=== PATIENT | female | born 1940 | race Caucasian/White ===

== ENCOUNTER → 2020-08-19 13:22 | Outpatient (BNVA) | payer MEDICARE, SELFPAY | PROVIDERS: PCP Internal Medicine; Visit Provider Physician Assistant | DX: M17.0 Bilateral primary osteoarthritis of knee (principal); I10 Essential (primary) hypertension; E78.5 Hyperlipidemia, unspecified; Z88.5 Allergy status to narcotic agent | CPT/HCPCS: 20610; J7321 ==

== ENCOUNTER → 2020-08-27 10:55 | Outpatient (BNVA) | payer MEDICARE, SELFPAY | PROVIDERS: PCP Internal Medicine; Visit Provider Physician Assistant | DX: M17.0 Bilateral primary osteoarthritis of knee (principal) | CPT/HCPCS: 20610; J7321 ==

== ENCOUNTER → 2020-09-02 12:07 | Outpatient (BNVA) | payer MEDICARE, SELFPAY | PROVIDERS: PCP Internal Medicine; Visit Provider Physician Assistant | DX: M17.0 Bilateral primary osteoarthritis of knee (principal) | CPT/HCPCS: 20610; J7321 ==

== ENCOUNTER 2020-10-20 08:21 | Outpatient (REF) | payer MEDICARE, SELFPAY ==
--- NOTE | 2020-10-20 08:25 | MM_ITS ---
EXAMINATION: MM SCREENING DIGITAL BREAST TOMOSYNTHESIS, BILATERAL CLINICAL INFORMATION: Screening. Asymptomatic. The lifetime risk of breast cancer based on the Tyrer-Cuzick Model is 1%. COMPARISON: Mammography: 10/12/2019, 09/12/2018, 08/29/2017, 08/23/2017; ultrasound right breast 08/29/2017. TECHNIQUE: Digital breast tomosynthesis is performed in both the craniocaudal and mediolateral oblique views along with computer-aided detection (CAD). Synthesized 2D images are generated from the tomosynthesis. FINDINGS: The breasts are heterogeneously dense, which may obscure small masses (ACR BI-RADS breast composition Category c). There is fibronodular parenchymal pattern similar to prior studies. There is no developing density or architectural abnormality. Scattered punctate and vascular calcifications are again seen. There is a small circumscribed cyst again noted posterior outer right breast, decreased in size from 2017. MM/MM tomosynthesis screening BI IMPRESSION: No significant changes from prior exams. ASSESSMENT: BI-RADS 2: Benign RECOMMENDATION: Routine annual mammography screening. This patient's information was entered into a reminder system with a target due date for their next mammogram.
== END 2020-10-20 08:22 | disposition home or self-care (01) ==
LOC: HO.MAMMO 08:21
PROVIDERS: Visit Provider Internal Medicine
DX: Z12.31 Encounter for screening mammogram for malignant neoplasm of breast (principal)
CPT/HCPCS: 77063; 77067

== ENCOUNTER → 2021-08-12 14:28 | Outpatient (BNVA) | payer MEDICARE, SELFPAY | PROVIDERS: Visit Provider Physician Assistant | DX: M17.0 Bilateral primary osteoarthritis of knee (principal) | CPT/HCPCS: 20610; J7321 ==

== ENCOUNTER → 2021-08-19 13:04 | Outpatient (BNVA) | payer MEDICARE, SELFPAY | PROVIDERS: Visit Provider Physician Assistant | DX: M17.0 Bilateral primary osteoarthritis of knee (principal); I10 Essential (primary) hypertension; E78.5 Hyperlipidemia, unspecified; Z88.6 Allergy status to analgesic agent | CPT/HCPCS: 20610; J7321 ==

== ENCOUNTER → 2021-08-26 14:04 | Outpatient (BNVA) | payer MEDICARE, SELFPAY | PROVIDERS: Visit Provider Physician Assistant | DX: M17.0 Bilateral primary osteoarthritis of knee (principal) | CPT/HCPCS: 20610; J7321 ==

== ENCOUNTER 2021-10-21 15:29 | Outpatient (REF) | payer MEDICARE, SELFPAY ==
--- NOTE | ~2021-10-21 | MM_ITS ---
EXAMINATION: MM SCREENING DIGITAL BREAST TOMOSYNTHESIS, BILATERAL CLINICAL INFORMATION: Screening. Asymptomatic. The lifetime risk of breast cancer based on the Tyrer-Cuzick Model is 1%. COMPARISON: Mammography: 10/20/2020, 10/12/2019, 09/12/2018 TECHNIQUE: Digital breast tomosynthesis is performed in both the craniocaudal and mediolateral oblique views along with computer-aided detection (CAD). Synthesized 2D images are generated from the tomosynthesis. FINDINGS: The breasts are heterogeneously dense, which may obscure small masses (ACR BI-RADS breast composition Category c). There are no significant masses, abnormal calcifications, or other abnormalities. Scattered punctate and vascular calcifications are again present. No significant changes. MM/MM tomosynthesis screening BI IMPRESSION: No mammographic evidence of malignancy. ASSESSMENT: BI-RADS 2: Benign RECOMMENDATION: Routine annual mammography screening. This patient's information was entered into a reminder system with a target due date for their next mammogram.
== END 2021-10-21 15:30 | disposition home or self-care (01) ==
LOC: HO.MAMMO 15:29
PROVIDERS: Visit Provider Registered Nurse
DX: Z12.31 Encounter for screening mammogram for malignant neoplasm of breast (principal)
CPT/HCPCS: 77063; 77067

== ENCOUNTER 2021-12-21 08:01 | Outpatient (REF) | payer MEDICARE, SELFPAY ==
--- NOTE | ~2021-12-21 | MM_ITS ---
EXAMINATION: BONE DENSITOMETRY CLINICAL INDICATION: Postmenopausal. COMPARISON: None (current study represents initial baseline exam). TECHNIQUE: Using a [employer] DXA System (software version: 13.1) manufactured by [employer], dual-energy x-ray absorptiometry was performed of the lumbar spine and left hip. The images are of good technical quality. Summary results are attached. FINDINGS: AP SPINE L1-L4: BMD 1.129 g/cm2, Z-score 0.9, T-score -0.4, normal. LEFT FEMUR, NECK: BMD 0.702 g/cm2, Z-score -0.5, T-score -2.4, osteopenia. LEFT FEMUR, TOTAL: BMD 0.736 g/cm2, Z-score -0.4, T-score -2.2, osteopenia. IDENTIFIED RISK FACTORS: Menopause, height loss, hysterectomy. HISTORY OF FRACTURE: None listed. MEDICATIONS: Calcium, vitamin D. MM/XR DEXA axial skeleton IMPRESSION: 1. DIAGNOSIS: Osteopenia based on the lowest T-score value of -2.4 in the femoral neck applying World Health Organization criteria. 2. 10-YEAR FRACTURE RISK PREDICTION, FRAX: Major osteoporotic fracture (clinical spine, forearm, hip or shoulder) 17.5%. Hip fracture 6.0%. 3. Treatment Recommendations: NOF guidelines recommend consideration for treatment in postmenopausal women and men age 50 and older presenting with the following: -A hip or vertebral (clinical or morphometric) fracture. -T-score less than or equal to -2.5 at the femoral neck or spine after appropriate evaluation to exclude secondary causes. -Low bone mass at the hip or spine and a 10-year fracture probability by FRAX of greater than or equal to 3% for hip fracture or greater than or equal to 20% for major osteoporotic fracture based on the [place] adapted WHO algorithm. 4. Other Recommendations: All treatment decisions require clinical judgment and consideration of individual patient factors, including patient preferences, comorbidities, previous drug use, risk factors not captured in the FRAX model (e.g. frailty, falls, vitamin D deficiency, increased bone turnover, interval significant decline in bone density) and possible under or overestimation of fracture risk by FRAX. Additional medical evaluation for secondary cause of low bone mineral density may be appropriate. FUTURE SCAN RECOMMENDATION: People with diagnosed cases of osteoporosis or at high risk for fracture should have regular bone mineral density tests. For patients eligible for Medicare, routine testing is allowed once every 2 years. The testing frequency can be increased to one year for patients who have rapidly progressing disease, those who are receiving or discontinuing medical therapy to restore bone mass, or have additional risk factors.
== END 2021-12-21 08:02 | disposition home or self-care (01) ==
LOC: HO.MAMMO 08:01
PROVIDERS: PCP Registered Nurse; Visit Provider Registered Nurse
DX: Z13.820 Encounter for screening for osteoporosis (principal); M85.80 Other specified disorders of bone density and structure, unspecified site; Z78.0 Asymptomatic menopausal state; Z98.890 Other specified postprocedural states; Z79.899 Other long term (current) drug therapy
CPT/HCPCS: 77080

== ENCOUNTER 2022-10-26 15:20 | Outpatient (REF) | payer MEDICARE, SELFPAY ==
--- NOTE | ~2022-10-26 | MM_ITS ---
EXAMINATION: MM SCREENING DIGITAL BREAST TOMOSYNTHESIS, BILATERAL CLINICAL INFORMATION: Screening. Asymptomatic. The lifetime risk of breast cancer based on the Tyrer-Cuzick Model is 1%. COMPARISON: Mammography: 10/21/2021, 10/20/2020, 10/12/2019 TECHNIQUE: Digital breast tomosynthesis is performed in both the craniocaudal and mediolateral oblique views along with computer-aided detection (CAD). Synthesized 2D images are generated from the tomosynthesis. FINDINGS: The breasts are heterogeneously dense, which may obscure small masses (ACR BI-RADS breast composition Category c). There are no significant masses, abnormal calcifications, or other abnormalities. Parenchymal pattern is similar to prior studies. There is no developing density or architectural abnormality. The axilla and skin contours are unremarkable. No significant changes. MM/MM tomosynthesis screening BI IMPRESSION: No mammographic evidence of malignancy. ASSESSMENT: BI-RADS 2: Benign RECOMMENDATION: Routine annual mammography screening. This patient's information was entered into a reminder system with a target due date for their next mammogram.
== END 2022-10-26 15:21 | disposition home or self-care (01) ==
LOC: HO.MAMMO 15:20
PROVIDERS: PCP Registered Nurse; Visit Provider Registered Nurse
DX: Z12.31 Encounter for screening mammogram for malignant neoplasm of breast (principal)
CPT/HCPCS: 77063; 77067

== ENCOUNTER → 2023-01-11 12:13 | Outpatient (BNVA) | payer MEDICARE, SELFPAY | PROVIDERS: PCP Registered Nurse; Visit Provider Orthopaedic Surgery | DX: M67.432 Ganglion, left wrist (principal) | CPT/HCPCS: 20612; 99202 ==

== ENCOUNTER 2023-01-31 12:32 | Outpatient (REF) | payer MEDICARE, SELFPAY ==
--- NOTE | ~2023-01-31 | XR_ITS ---
EXAMINATION: XR WRIST, LEFT CLINICAL INFORMATION: Pain COMPARISON: Hand radiographs 07/31/2019 TECHNIQUE: PA, lateral, and oblique views of the left wrist. FINDINGS: Advanced degenerative changes of the hand and wrist regressed from prior with complete loss of radiocarpal and triscaphe joint space, and degenerative changes of the metacarpophalangeal and first interphalangeal joints. Soft tissues are unremarkable. No acute fracture or dislocation. XR/XR wrist LT min 3V IMPRESSION: Advanced degenerative changes of the hand and wrist.
== END 2023-01-31 12:33 | disposition home or self-care (01) ==
LOC: HO.HOSX 12:32
PROVIDERS: PCP Registered Nurse; Visit Provider Orthopaedic Surgery
DX: M67.432 Ganglion, left wrist (principal)
CPT/HCPCS: 73110; 99212

== ENCOUNTER 2023-02-23 06:22 | Outpatient (REF) | payer MEDICARE, SELFPAY ==
--- NOTE | ~2023-02-23 | XR_ITS ---
EXAMINATION: XR KNEE STANDING, BILATERAL XR KNEE, RIGHT XR KNEE, LEFT CLINICAL INDICATIONS: Pain. COMPARISON: Bilateral knee and AP knee standing 07/03/2020. TECHNIQUE: AP bilateral knee standing and 2 views each knee. AP Bilateral Knee: There is significant genu valgus deformity bilateral knees with severe loss of lateral compartment joint both knees. Right Knee: There is severe loss of patellofemoral compartment joint space with mild suprapatellar joint effusion and superior patellar spurring. No visible acute fracture, dislocation or lytic process seen. Left Knee: There is severe loss of patellofemoral compartment joint space with superior patellar spurring and mild joint effusion. There are no loose bodies. No bony erosive changes. XR/XR knee standing BI IMPRESSION: 1. Severe degenerative arthritic changes bilateral knee joints with genu valgus deformity. 2. There is no acute fracture, dislocation or lytic process seen in either knee. 3. There is progression of arthritic changes in both knees since the last exam 07/03/2020.
--- NOTE | ~2023-02-23 | XR_ITS ---
EXAMINATION: XR KNEE STANDING, BILATERAL XR KNEE, RIGHT XR KNEE, LEFT CLINICAL INDICATIONS: Pain. COMPARISON: Bilateral knee and AP knee standing 07/03/2020. TECHNIQUE: AP bilateral knee standing and 2 views each knee. AP Bilateral Knee: There is significant genu valgus deformity bilateral knees with severe loss of lateral compartment joint both knees. Right Knee: There is severe loss of patellofemoral compartment joint space with mild suprapatellar joint effusion and superior patellar spurring. No visible acute fracture, dislocation or lytic process seen. Left Knee: There is severe loss of patellofemoral compartment joint space with superior patellar spurring and mild joint effusion. There are no loose bodies. No bony erosive changes. XR/XR knee RT 2V IMPRESSION: 1. Severe degenerative arthritic changes bilateral knee joints with genu valgus deformity. 2. There is no acute fracture, dislocation or lytic process seen in either knee. 3. There is progression of arthritic changes in both knees since the last exam 07/03/2020.
--- NOTE | ~2023-02-23 | XR_ITS ---
EXAMINATION: XR KNEE STANDING, BILATERAL XR KNEE, RIGHT XR KNEE, LEFT CLINICAL INDICATIONS: Pain. COMPARISON: Bilateral knee and AP knee standing 07/03/2020. TECHNIQUE: AP bilateral knee standing and 2 views each knee. AP Bilateral Knee: There is significant genu valgus deformity bilateral knees with severe loss of lateral compartment joint both knees. Right Knee: There is severe loss of patellofemoral compartment joint space with mild suprapatellar joint effusion and superior patellar spurring. No visible acute fracture, dislocation or lytic process seen. Left Knee: There is severe loss of patellofemoral compartment joint space with superior patellar spurring and mild joint effusion. There are no loose bodies. No bony erosive changes. XR/XR knee LT 2V IMPRESSION: 1. Severe degenerative arthritic changes bilateral knee joints with genu valgus deformity. 2. There is no acute fracture, dislocation or lytic process seen in either knee. 3. There is progression of arthritic changes in both knees since the last exam 07/03/2020.
== END 2023-02-23 06:23 | disposition home or self-care (01) ==
LOC: HO.HOSX 06:22
PROVIDERS: Visit Provider Physician Assistant
DX: M17.0 Bilateral primary osteoarthritis of knee (principal)
CPT/HCPCS: 73560; 73565; 99212

== ENCOUNTER → 2023-03-06 11:06 | Outpatient (BNVA) | payer MEDICARE, SELFPAY | PROVIDERS: PCP Registered Nurse; Visit Provider Physician Assistant | DX: M17.0 Bilateral primary osteoarthritis of knee (principal) | CPT/HCPCS: 20610; J7321 ==

== ENCOUNTER → 2023-03-13 10:38 | Outpatient (BNVA) | payer MEDICARE, SELFPAY | PROVIDERS: PCP Registered Nurse; Visit Provider Physician Assistant | DX: M17.0 Bilateral primary osteoarthritis of knee (principal) | CPT/HCPCS: 20610 ==

== ENCOUNTER → 2023-03-23 10:04 | Outpatient (BNVA) | payer MEDICARE, SELFPAY | PROVIDERS: PCP Registered Nurse; Visit Provider Physician Assistant | DX: M17.0 Bilateral primary osteoarthritis of knee (principal) | CPT/HCPCS: 20610; J7321 ==

== ENCOUNTER 2023-07-24 09:10 | Outpatient (AMB) | payer MEDICARE, SELFPAY ==
--- NOTE | 2023-07-24 09:20 | A.OFFVIS_ITS ---
Intake Vital Signs 07/24/23 09:24 Height 5 ft 6 in Weight 165 lb BMI 26.6 Intake Visit Reasons: ov- bilateral knee cortisone injection Intake Note: Jennifer is an 83 year old female who presents today for a follow up of her bilateral knee OA. Last injections done were gel injections. She would like to have cortisone done today. She reports that on her way into the office she rolled her left foot laterally and is having a significant amount of pain along the 5th MT. Allergies codeine Allergy (Unknown, Verified 07/24/23 09:23) HIVES Codeine Phosphate Allergy (Unknown, Uncoded 07/24/23 09:23) hives HPI ov- bilateral knee cortisone injection HPI Details Jennifer is an 83 year old woman with bilateral knee OA. She was last seen and injected bilaterally with viscosupplementation on 03/23/23 by BEN Wallace. She complains of pain with daily activity and would like cortisone injections today. She says her last gel injections were not as helpful for her as her previous injections. She reports rolling her left foot when coming into the office today and complains of worsening pain in the lateral aspect of her foot. [facility] Medical History HTN (hypertension) Hyperlipidemia Social History Alcohol intake: never Patient Tobacco Use Status: Never used Tobacco Current occupational status: retired Current occupation: rt handed Review of Systems Const All systems reviewed & are unremarkable except as noted in HPI and below Physical Exam Vital Signs: BMI result Body Mass Index 26.6 Const General: no acute distress, alert and awake Orientation/consciousness: patient oriented x3 HEENT Head: Yes normocephalic and Yes atraumatic Eyes EOM: EOMs intact bilaterally Resp Effort & Inspection: normal respiratory effort and able to speak in complete sentences Cardio Jugular venous distension: no JVD Skin General skin exam: turgor normal Rashes: no rashes Neuro General: patient oriented x3 Extrem Other: Bilateral Knees: Skin C/D/I TTP medial compartment Psych Appearance: grossly normal Affect: normal affect Attitude: cooperative Office Procedures Joint Injection/Drain Joint Injection/Drain Details: Injected 1 mL of Decadron and 3 mL 1% lidocaine and 3 mL of 0.25% Marcaine. Site was prepped using aseptic technique. Patient tolerated the procedure well. Primary Site: right knee Secondary Site: left knee Approach Used: anterolateral Coding 54903 - Large joint 50347 - Glenohumeral/Tronchanteric Bursa/Intraarticular Procedure code (CPT) selection complete Results Reviewed Results Reviewed: 07/24/23 09:11 BUPivacaine MPF 0.25 % [Sensorcaine-MPF 0.25% 10 ML] 10 ml .ROUTE .STK-MED ONE Lidocaine HCl 1 % [Xylocaine 1 %] 2 ml .ROUTE .STK-MED ONE Lidocaine HCl 2 % MPF [Xylocaine 2 % MPF] 5 ml .ROUTE .STK-MED ONE dexAMETHasone sod phosphate [Decadron] 4 mg .ROUTE .STK-MED ONE I personally reviewed relevant radiographs. 1. Severe degenerative arthritic changes bilateral knee joints with genu valgus deformity. Assessment & Plan Assessment & Plan (1) Bilateral primary osteoarthritis of knee: Code(s): M17.0 - Bilateral primary osteoarthritis of knee Plan: This is an 83 year old woman with bilateral knee OA. She has pain with daily activity and a hx of relief from both steroid injections and viscosupplementation. I injected her bilateral knees today with steroid, which she tolerated well. She can follow up prn. (2) Left foot pain: Code(s): M79.672 - Pain in left foot Plan: Pain in left foot S/P twisting injury, DOI: 07/24/23. No intervention warranted, if her symptoms persist or worsen she can follow up and we may consider radiographs. Plan Scribed for Humberto Long MD by Florencio Ward, medical concierge, on 07/24/23 at 9:40 AM, EST. Coding Level of Care Code Est Pt Level 3 (44218) Diagnoses Bilateral primary osteoarthritis of knee M17.0 Left foot pain M79.672 CPT Codes Coding - Large joint: 75544 - Large joint ([id number]) Coding - Joint 7: 95440 - Glenohumeral/Tronchanteric Bursa/Intraarticular ([id number])
[2023-07-24 09:24] VITALS: BMI 26.6
== END 2023-07-24 09:54 | disposition home or self-care (01) ==
PROVIDERS: PCP Registered Nurse; Visit Provider Orthopaedic Surgery
DX: M17.0 Bilateral primary osteoarthritis of knee (principal); M79.672 Pain in left foot
CPT/HCPCS: 20610; 99213

== ENCOUNTER → 2023-07-24 09:10 | Outpatient (BNVA) | payer MEDICARE, SELFPAY | PROVIDERS: PCP Registered Nurse; Visit Provider Orthopaedic Surgery | DX: M17.0 Bilateral primary osteoarthritis of knee (principal); M79.672 Pain in left foot | CPT/HCPCS: 20610; 99212; J1100 ==

== ENCOUNTER → 2023-09-29 11:18 | Outpatient (BNVA) | payer MEDICARE, SELFPAY | PROVIDERS: PCP Registered Nurse; Visit Provider Physician Assistant | DX: M17.0 Bilateral primary osteoarthritis of knee (principal) | CPT/HCPCS: 20610; J7321 ==

== ENCOUNTER 2023-09-29 11:20 | Outpatient (AMB) | payer MEDICARE, SELFPAY ==
--- NOTE | 2023-09-29 11:30 | A.OFFVIS_ITS ---
Intake Vital Signs 09/29/23 11:31 Height 5 ft 6 in Weight 165 lb BMI 26.6 Intake Visit Reasons: ov- b/l knee Supartz injection #1 Intake Note: Jennifer 83 yr old female presents today for her bilateral supartz injection #1. Allergies codeine Allergy (Unknown, Verified 09/29/23 11:31) HIVES Codeine Phosphate Allergy (Unknown, Uncoded 09/29/23 11:31) hives HPI ov- b/l knee Supartz injection #1 HPI Details 83-year-old female who returns to the [facility] today for bilateral knee Supartz injection #1. PENDING SALE TO [facility] Medical History HTN (hypertension) Hyperlipidemia Social History Alcohol intake: never Patient Tobacco Use Status: Never used Tobacco Current occupational status: retired Current occupation: rt handed Review of Systems Const All systems reviewed & are unremarkable except as noted in HPI and below Physical Exam Vital Signs: BMI result Body Mass Index 26.6 Extrem Other: Bilateral knee skin intact, no erythema or joint effusion. Significant Valgus deformity , R>L. Tenderness along the medial or lateral or medial and lateral joint line. Full ROM with crepitus. Negative Naomi?s. No ligamentous laxity. NVI. Office Procedures Joint Injection/Drain Joint Injection/Drain Details: bilat knee euflexxa Primary Site: right knee Secondary Site: left knee Prep: site was prepped using aseptic technique, ethochloride spray was applied and injection warnings given Injected: in the joint Approach Used: anterolateral Procedure: The patient tolerated the procedure well Coding 39407 - Glenohumeral/Tronchanteric Bursa/Intraarticular Procedure code (CPT) selection complete Assessment & Plan Assessment & Plan (1) Bilateral primary osteoarthritis of knee: Code(s): M17.0 - Bilateral primary osteoarthritis of knee Plan We discussed options today which include Supartz injection. They did consent to move forward with the bilateral knee Supartz injection, which was tolerated well. I recommended rest, ice and elevation and OTC anti-inflammatories PRN for discomfort. If symptoms persist or worsens over the next 6-8 weeks, patient will contact the office, otherwise she will return in 1 week for bilateral knee Supartz injection #2. Patient Instructions: Scribed for Bailey Wallace PA-C, by Koby Truong medical administrative specialist, on 09/29/2023 at 11:30 PM EST. I, Bailey Wallace PA-C, have personally reviewed and agree with the information entered by the scribe. Coding Level of Care Code Procedure Only Diagnoses Bilateral primary osteoarthritis of knee M17.0 CPT Codes Coding - Joint 7: 37506 - Glenohumeral/Tronchanteric Bursa/Intraarticular ([id number])
[2023-09-29 11:31] VITALS: BMI 26.6
== END 2023-09-29 11:41 | disposition home or self-care (01) ==
PROVIDERS: PCP Registered Nurse; Visit Provider Physician Assistant
DX: M17.0 Bilateral primary osteoarthritis of knee (principal)
CPT/HCPCS: 20610

== ENCOUNTER 2023-10-06 11:10 | Outpatient (AMB) | payer MEDICARE, SELFPAY ==
[2023-10-06 11:15] VITALS: BMI 26.6
--- NOTE | 2023-10-06 11:15 | A.OFFVIS_ITS ---
Intake Vital Signs 10/06/23 11:15 Height 5 ft 6 in Weight 165 lb BMI 26.6 Intake Visit Reasons: ov- b/l knee supartz #2 Intake Note: Jennifer 83 yr old female presents today for her bilateral supartz injection #2. Allergies codeine Allergy (Unknown, Verified 10/06/23 11:15) HIVES Codeine Phosphate Allergy (Unknown, Uncoded 10/06/23 11:15) hives HPI ov- b/l knee supartz #2 HPI Details 83-year-old female who returns to the [facility] today for bilateral knee Supartz injection #2. [facility] Medical History HTN (hypertension) Hyperlipidemia Social History Alcohol intake: never Patient Tobacco Use Status: Never used Tobacco Current occupational status: retired Current occupation: rt handed Review of Systems Const All systems reviewed & are unremarkable except as noted in HPI and below Physical Exam Vital Signs: BMI result Body Mass Index 26.6 Extrem Other: Bilateral knee: Skin intact, no erythema or joint effusion. Tenderness along the medial and lateral joint line. Full ROM with crepitus. Negative Naomi?s. No ligamentous laxity. NVI. Office Procedures Joint Injection/Drain Joint Injection/Drain Details: supartz-bilateral Primary Site: right knee Secondary Site: left knee Prep: site was prepped using aseptic technique, ethochloride spray was applied and injection warnings given Injected: in the joint Approach Used: anterolateral Procedure: The patient tolerated the procedure well Coding 67118 - Glenohumeral/Tronchanteric Bursa/Intraarticular Procedure code (CPT) selection complete Assessment & Plan Assessment & Plan (1) Bilateral primary osteoarthritis of knee: Code(s): M17.0 - Bilateral primary osteoarthritis of knee Plan We discussed options today which include Supartz injection. They did consent to move forward with the bilateral knee Supartz injection, which was tolerated well. I recommended rest, ice and elevation and OTC anti-inflammatories PRN for discomfort. If symptoms persist or worsens over the next 6-8 weeks, patient will contact the office, otherwise she will return in 1 week for Supartz injection #3. Patient Instructions: Scribed for Bailey Wallace PA-C, by Koby Truong spanish medical interpreter, on 10/06/2023 at 11:15 AM SUNDEEP. Bailey Valdovinos PA-C, have personally reviewed and agree with the information entered by the scribe. Coding Level of Care Code Procedure Only Diagnoses Bilateral primary osteoarthritis of knee M17.0 CPT Codes Coding - Joint 7: 48502 - Glenohumeral/Tronchanteric Bursa/Intraarticular ([id number])
== END 2023-10-06 12:43 | disposition home or self-care (01) ==
PROVIDERS: PCP Registered Nurse; Visit Provider Physician Assistant
DX: M17.0 Bilateral primary osteoarthritis of knee (principal)
CPT/HCPCS: 20610

== ENCOUNTER → 2023-10-06 11:10 | Outpatient (BNVA) | payer MEDICARE, SELFPAY | PROVIDERS: PCP Registered Nurse; Visit Provider Physician Assistant | DX: M17.0 Bilateral primary osteoarthritis of knee (principal) | CPT/HCPCS: 20610; J7321 ==

== ENCOUNTER 2023-10-13 08:54 | Outpatient (AMB) | payer MEDICARE, SELFPAY ==
--- NOTE | 2023-10-13 08:59 | A.OFFVIS_ITS ---
Intake Intake Visit Reasons: ov- B/L knee supartz #3 Intake Note: Jennifer an 83 year old female presents today for bilateral knee Supartz #3. Allergies codeine Allergy (Unknown, Verified 10/06/23 11:15) HIVES Codeine Phosphate Allergy (Unknown, Uncoded 10/06/23 11:15) hives HPI ov- B/L knee supartz #3 HPI Details 83-year-old female who returns to the [facility] today for bilateral knee Supartz injection #3. [facility] Medical History HTN (hypertension) Hyperlipidemia Social History Alcohol intake: never Patient Tobacco Use Status: Never used Tobacco Current occupational status: retired Current occupation: rt handed Review of Systems Const All systems reviewed & are unremarkable except as noted in HPI and below Physical Exam Extrem Other: Bilateral knee: Skin intact, no erythema or joint effusion. Tenderness along the medial and lateral joint line. Full ROM with crepitus. Negative Naomi?s. No ligamentous laxity. NVI. Office Procedures Joint Injection/Drain Joint Injection/Drain Details: bilat knee supartz Primary Site: left knee Secondary Site: right knee Prep: site was prepped using aseptic technique, ethochloride spray was applied and injection warnings given Injected: 80 mg of, DepoMedrol, with 8 mL of, 1% plain lidocaine and in the joint Approach Used: anteromedial Procedure: The patient tolerated the procedure well and there was some relief with the local anesthesia Coding 86420 - Glenohumeral/Tronchanteric Bursa/Intraarticular Procedure code (CPT) selection complete Assessment & Plan Assessment & Plan (1) Bilateral primary osteoarthritis of knee: Code(s): M17.0 - Bilateral primary osteoarthritis of knee Plan We discussed options today which include Supartz & cortisone injection. They did consent to move forward with the bilateral knee Supartz injection along with cortisone injection, which was tolerated well. I recommended rest, ice and elevation and OTC anti-inflammatories PRN for discomfort. If symptoms persist or worsens over the next 6-8 weeks, patient will contact the office, otherwise follow-up as needed. Patient Instructions: Scribed for Bailey Wallace PA-C, by Koby Truong medical transcription supervisor, on 10/13/2023 at 9:00 AM Bailey CUMMINGS PA-C, have personally reviewed and agree with the information entered by the scribe. Coding Level of Care Code Procedure Only Diagnoses Bilateral primary osteoarthritis of knee M17.0 CPT Codes Coding - Joint 7: 45463 - Glenohumeral/Tronchanteric Bursa/Intraarticular ([id number])
== END 2023-10-13 10:53 | disposition home or self-care (01) ==
PROVIDERS: PCP Registered Nurse; Visit Provider Physician Assistant
DX: M17.0 Bilateral primary osteoarthritis of knee (principal)
CPT/HCPCS: 20610

== ENCOUNTER → 2023-10-13 08:54 | Outpatient (BNVA) | payer MEDICARE, SELFPAY | PROVIDERS: PCP Registered Nurse; Visit Provider Physician Assistant | DX: M17.0 Bilateral primary osteoarthritis of knee (principal) | CPT/HCPCS: 20610; J1040; J7321 ==

== ENCOUNTER 2023-11-01 08:56 | Outpatient (REF) | payer MEDICARE, SELFPAY ==
--- NOTE | ~2023-11-01 | MM_ITS ---
EXAMINATION: MM SCREENING DIGITAL BREAST TOMOSYNTHESIS, BILATERAL CLINICAL INFORMATION: Screening. Asymptomatic. COMPARISON: Mammography: This study is compared with prior exams dating back to 2018. TECHNIQUE: Digital breast tomosynthesis is performed in both the craniocaudal and mediolateral oblique views along with computer-aided detection (CAD). Synthesized 2D images are generated from the tomosynthesis. FINDINGS: The breasts are heterogeneously dense, which may obscure small masses (ACR BI-RADS breast composition Category c). There is an asymmetry in the upper-outer quadrant of the left breast. Additional mammographic and targeted sonographic evaluation of this region is advised. The remainder of the left breast is normal. In the right breast, there are no significant masses, abnormal calcifications, or other abnormalities. MM/MM tomosynthesis screening BI IMPRESSION: Asymmetry of the left breast warrants additional mammographic and targeted sonographic evaluation. No mammographic signs of malignancy right breast. ASSESSMENT: BI-RADS BI-RADS 0 - Incomplete: Needs additional Imaging. RECOMMENDATION: 1. Additional views of the left breast 2. Targeted ultrasound if warranted after review of the additional views. 3. Radiology department staff will contact the patient for additional imaging. Additional Imaging required This examination should not preclude the clinical evaluation of a suspicious palpable abnormality. This patient's information was entered into a reminder system with a target due date for their next mammogram.
== END 2023-11-01 08:57 | disposition home or self-care (01) ==
LOC: HO.MAMMO 08:56
PROVIDERS: PCP Internal Medicine; Visit Provider Internal Medicine
DX: Z12.31 Encounter for screening mammogram for malignant neoplasm of breast (principal)
CPT/HCPCS: 77063; 77067

== ENCOUNTER → 2023-11-01 09:00 | Outpatient (BNV) | payer MEDICARE, SELFPAY | PROVIDERS: Visit Provider Radiology Diagnostic Radiology | DX: Z12.31 Encounter for screening mammogram for malignant neoplasm of breast (principal) | CPT/HCPCS: 77063; 77067 ==

== ENCOUNTER → 2023-11-22 09:30 | Outpatient (BNV) | payer MEDICARE, SELFPAY | PROVIDERS: PCP Internal Medicine; Visit Provider Radiology Diagnostic Radiology | DX: R92.8 Other abnormal and inconclusive findings on diagnostic imaging of breast (principal) | CPT/HCPCS: 76642; 77065; G0279 ==

== ENCOUNTER 2023-11-22 09:40 | Outpatient (REF) | payer MEDICARE, SELFPAY ==
--- NOTE | ~2023-11-22 | US_ITS ---
EXAMINATION: MM DIAGNOSTIC DIGITAL BREAST TOMOSYNTHESIS, LEFT US BREAST LIMITED, LEFT MAMMOGRAPHY: CLINICAL INFORMATION: Follow-up one view asymmetry upper left breast seen on screening left MLO view with no definite CC correlate. COMPARISON: Mammography: Screening mammography 11/01/2023. Exams dating back to 2017. TECHNIQUE: Digital left breast tomosynthesis is performed utilizing the following views: Full-field 3-D left digital mediolateral view, 3-D spot compression left MLO view x2. FINDINGS: The breasts are heterogeneously dense, which may obscure small masses (ACR BI-RADS breast composition Category c). The 1 view asymmetry seen in the superior left breast on the left MLO projection does not definitively persist on spot compression views, however does appear to persist on the full-field left mediolateral view. Ultrasound will be performed for further assessment. No new or suspicious left breast findings. There are vascular calcifications. Parenchymal pattern resembles multiple old studies closely. ULTRASOUND: CLINICAL INFORMATION: As above. COMPARISON: None relevant. TECHNIQUE: Targeted sonographic evaluation left breast was performed using a high frequency linear transducer. Breast was evaluated from the 11:00 to the 3:00 axes. Selected archived documentation. FINDINGS: LEFT BREAST: There is heterogeneously dense tissue noted in the upper outer left breast. There is no mass, cystic abnormality, abnormal shadowing, parenchymal distortion, or edema tracking in the soft tissue planes. There is no correlate to the one view asymmetry seen as above. US/US breast LT limited mamm only IMPRESSION: There are no findings in the left breast suspicious for malignancy. 1 view asymmetry left upper MLO view does not persist on diagnostic spot compression views, and shows no correlate on targeted left breast ultrasound. This is simply dense breast tissue. Recommend the patient resume routine annual screening. OVERALL ASSESSMENT: Mammography: BI-RADS 2 - Benign Findings Ultrasound: BI-RADS 2 - Benign Findings RECOMMENDATION: 1 year F/U Results were provided to the patient at time of visit by the technologist. This patient's information was entered into a reminder system with a target due date for their next mammogram.
== END 2023-11-22 09:41 | disposition home or self-care (01) ==
LOC: HO.MAMMO 09:40
PROVIDERS: PCP Internal Medicine; Visit Provider Internal Medicine
DX: N64.89 Other specified disorders of breast (principal)
CPT/HCPCS: 76642; 77061; 77065

== ENCOUNTER 2024-03-20 11:06 | Outpatient (AMB) | payer MEDICARE, SELFPAY ==
--- NOTE | 2024-03-20 11:14 | A.OFFVIS_ITS ---
Vital Signs 03/20/24 12:00 Height 5 ft 6 in Weight 165 lb BMI 26.6 Intake Visit Reasons: OV - Bilateral Knee OA - Hx of Supartz Intake Note: Jennifer an 83 year old female presents today for a follow up of bilateral knee pain. Patient was last seen on 10/13/23 when supartz #3 was administered. Patient reports gel injection provided her with relief however her pain has ret urned and is requesting bilateral knee cortisone injections. Allergies codeine Allergy (Unknown, Verified 03/20/24 11:33) HIVES Codeine Phosphate Allergy (Unknown, Uncoded 03/20/24 11:33) hives HPI HPI OV - Bilateral Knee OA - Hx of Supartz: Details: 83-year-old female who returns to the office today for a follow-up of bilateral knee pain. She had her Supartz #3 injection on 10/13/23 which provided her relief however her pain returned recently. She would like to repeat the injection. [facility] Medical History HTN (hypertension) Hyperlipidemia Social History Alcohol intake: never Patient Tobacco Use Status: Never used Tobacco Current occupational status: retired Current occupation: rt handed Review of Systems Const All systems reviewed & are unremarkable except as noted in HPI and below Physical Exam Vital Signs: BMI result Body Mass Index 26.6 Extrem Other: Bilateral knee: Skin intact, no erythema or joint effusion. Tenderness along the medial and lateral joint line. Full ROM with crepitus. Negative Naomi?s. No ligamentous laxity. NVI. Office Procedures Joint Injection/Drain Joint Injection/Drain Primary Site: right knee Secondary Site: left knee Prep: site was prepped using aseptic technique, ethochloride spray was applied and injection warnings given Injected: 40 mg of, 80 mg of, DepoMedrol, with 8 mL of, 1% plain lidocaine and in the joint Approach Used: anterolateral Procedure: The patient tolerated the procedure well and there was some relief with the local anesthesia Coding 69311 - Glenohumeral/Tronchanteric Bursa/Intraarticular Procedure code (CPT) selection complete Assessment & Plan Assessment & Plan (1) Bilateral primary osteoarthritis of knee: Code(s): M17.0 - Bilateral primary osteoarthritis of knee Category: Medical Plan We discussed options today which include steroid injection. They did consent to move forward with the bilateral knee injection, which was tolerated well. I recommended rest, ice and elevation and OTC anti-inflammatories PRN for discomfort. If symptoms persist or worsens over the next 6-8 weeks, patient will contact the office, otherwise follow-up as needed. ? Patient Instructions: Scribed for Bailey Wallace PA-C, by Koby Truong medical service technician, on 03/20/2024 at 11:15 AM EST.? I, Bailey Wallace PA-C, have personally reviewed and agree with the information entered by the scribe. Coding Level of Care Code Est Pt Level 3 (55423) Diagnoses Bilateral primary osteoarthritis of knee M17.0 CPT Codes Coding - Joint 7: 76071 - Glenohumeral/Tronchanteric Bursa/Intraarticular ([id number])
[2024-03-20 12:00] VITALS: BMI 26.6
== END 2024-03-20 11:45 | disposition home or self-care (01) ==
PROVIDERS: PCP Internal Medicine; Visit Provider Physician Assistant
DX: M17.0 Bilateral primary osteoarthritis of knee (principal)
CPT/HCPCS: 20610; 99213

== ENCOUNTER → 2024-03-20 11:06 | Outpatient (BNVA) | payer MEDICARE, SELFPAY | PROVIDERS: PCP Internal Medicine; Visit Provider Physician Assistant | DX: M17.0 Bilateral primary osteoarthritis of knee (principal) | CPT/HCPCS: 20610; 99212; J1010 ==

== ENCOUNTER 2024-05-01 14:55 | Outpatient (AMB) | payer MEDICARE, SELFPAY ==
--- NOTE | 2024-05-01 15:04 | A.OFFVIS_ITS ---
Intake Visit Reasons: INJ-B/L knee Supartz #1 Intake Note: Jennifer an 84 year old female who presents today for a bilateral knee Supartz injection #1. Allergies codeine Allergy (Unknown, Verified 05/01/24 15:12) HIVES Codeine Phosphate Allergy (Unknown, Uncoded 05/01/24 15:12) hives HPI HPI INJ-B/L knee Supartz #1: Details: 84-year-old female who returns to the office today for bilateral knee Supartz injection #1. PFSH Medical History HTN (hypertension) Hyperlipidemia Social History Alcohol intake: never Patient Tobacco Use Status: Never used Tobacco Current occupational status: retired Current occupation: rt handed Review of Systems Const All systems reviewed & are unremarkable except as noted in HPI and below Physical Exam Extrem Other: Bilateral knee: Skin intact, no erythema or joint effusion. Tenderness along the medial and lateral joint line. Full ROM with crepitus. Negative Naomi?s. No ligamentous laxity. NVI. Office Procedures Joint Injection/Drain Joint Injection/Drain Details: Supartz injection #1. Primary Site: right knee Secondary Site: left knee Prep: site was prepped using aseptic technique, ethochloride spray was applied and injection warnings given Injected: in the joint Approach Used: anterolateral Procedure: The patient tolerated the procedure well Coding 91667 - Glenohumeral/Tronchanteric Bursa/Intraarticular Procedure code (CPT) selection complete Assessment & Plan Assessment & Plan (1) Bilateral primary osteoarthritis of knee: Code(s): M17.0 - Bilateral primary osteoarthritis of knee Category: Medical Plan We discussed options today, which include Supartz injection. The patient did consent to move forward with the bilateral knee Supartz injection #1, which was tolerated well. I recommended rest, ice, and elevation and OTC anti- inflammatories as needed for discomfort. If symptoms persist or worsen, patient will contact the office, otherwise she will see me back next week for Supartz injection #2. Patient Instructions: Scribed for Bailey Wallace PA-C, by Koby Truong medical technologist microbiology, on 05/01/2024 at 3:15 PM EST.? I, Bailey Wallace PA-C, have personally reviewed and agree with the information entered by the scribe. Coding Level of Care Code Procedure Only Diagnoses Bilateral primary osteoarthritis of knee M17.0 CPT Codes Coding - Joint 7: 60384 - Glenohumeral/Tronchanteric Bursa/Intraarticular ([id number])
== END 2024-05-01 16:34 | disposition home or self-care (01) ==
PROVIDERS: PCP Internal Medicine; Visit Provider Physician Assistant
DX: M17.0 Bilateral primary osteoarthritis of knee (principal)
CPT/HCPCS: 20610

== ENCOUNTER → 2024-05-01 14:55 | Outpatient (BNVA) | payer MEDICARE, SELFPAY | PROVIDERS: PCP Internal Medicine; Visit Provider Physician Assistant | DX: M17.0 Bilateral primary osteoarthritis of knee (principal) | CPT/HCPCS: 20610; J7321 ==

== ENCOUNTER 2024-05-08 14:31 | Outpatient (AMB) | payer MEDICARE, SELFPAY ==
--- NOTE | 2024-05-08 14:37 | A.OFFVIS_ITS ---
Vital Signs 05/08/24 14:38 Height 5 ft 6 in Weight 165 lb BMI 26.6 Intake Visit Reasons: inj-B/L knee Supartz #2 Intake Note: Jennifer an 84 year old female who presents today for bilateral knee injections Supartz #2. Allergies codeine Allergy (Unknown, Verified 05/08/24 14:40) HIVES Codeine Phosphate Allergy (Unknown, Uncoded 05/08/24 14:40) hives Medication List - Last Reconciled 05/08/24 by Bailye Wallace PA-C celecoxib 200 mg PO BID lisinopril 5 mg PO DAILY lisinopril 10 mg PO DAILY pravastatin 10 mg PO BEDTIME HPI HPI inj-B/L knee Supartz #2: Details: 84-year-old female who returns to the office today for bilateral knee Supartz injection #2. PFSH Medical History HTN (hypertension) Hyperlipidemia Social History Alcohol intake: never Patient Tobacco Use Status: Never used Tobacco Current occupational status: retired Current occupation: rt handed Review of Systems Const All systems reviewed & are unremarkable except as noted in HPI and below Physical Exam Vital Signs: BMI result Body Mass Index 26.6 Extrem Other: Bilateral knee: Skin intact, no erythema or joint effusion. Tenderness along the medial and lateral joint line. Full ROM with crepitus. Negative Naomi?s. No ligamentous laxity. NVI. Office Procedures Joint Injection/Drain Joint Injection/Drain Details: #2 supartz Primary Site: right knee Secondary Site: left knee Prep: site was prepped using aseptic technique, ethochloride spray was applied and injection warnings given Injected: in the joint Approach Used: anterolateral Procedure: The patient tolerated the procedure well and there was some relief with the local anesthesia Coding 78753 - Glenohumeral/Tronchanteric Bursa/Intraarticular Procedure code (CPT) selection complete Assessment & Plan Assessment & Plan (1) Bilateral primary osteoarthritis of knee: Code(s): M17.0 - Bilateral primary osteoarthritis of knee Category: Medical Plan We discussed options today, which include Supartz injection. The patient did consent to move forward with the bilateral knee Supartz injection, which was tolerated well. I recommended rest, ice, and elevation and OTC anti-inflammatori es as needed for discomfort. If symptoms persist or worsen over the next 6-8 weeks, patient will contact the office, otherwise she will return in 1 week for Supartz injection #3. Patient Instructions: Scribed for Bailey Wallace PA-C, by Koby Truong medical record librarian, on 05/08/2024 at 2:30 PM EST.? I, Bailey Wallace PA-C, have personally reviewed and agree with the information entered by the scribe. Coding Level of Care Code Procedure Only Diagnoses Bilateral primary osteoarthritis of knee M17.0 CPT Codes Coding - Joint 7: 35494 - Glenohumeral/Tronchanteric Bursa/Intraarticular ([id number])
[2024-05-08 14:38] VITALS: BMI 26.6
== END 2024-05-08 14:50 | disposition home or self-care (01) ==
PROVIDERS: PCP Internal Medicine; Visit Provider Physician Assistant
DX: M17.0 Bilateral primary osteoarthritis of knee (principal)
CPT/HCPCS: 20610

== ENCOUNTER → 2024-05-08 14:31 | Outpatient (BNVA) | payer MEDICARE, SELFPAY | PROVIDERS: PCP Internal Medicine; Visit Provider Physician Assistant | DX: M17.0 Bilateral primary osteoarthritis of knee (principal) | CPT/HCPCS: 20610; J7321 ==

== ENCOUNTER 2024-05-15 10:18 | Outpatient (AMB) | payer MEDICARE, SELFPAY ==
[2024-05-15 10:25] VITALS: BMI 26.6
--- NOTE | 2024-05-15 10:25 | A.OFFVIS_ITS ---
Vital Signs 05/15/24 10:25 Height 5 ft 6 in Weight 165 lb BMI 26.6 Intake Visit Reasons: Inj-B/L knee Supartz #3 Intake Note: Jennifer an 84 year old female who presents today for bilateral knee Supartz injection #3. Allergies codeine Allergy (Unknown, Verified 05/15/24 10:27) HIVES Codeine Phosphate Allergy (Unknown, Uncoded 05/15/24 10:27) hives HPI HPI Inj-B/L knee Supartz #3: Details: Jennifer an 84 year old female who presents today for bilateral knee Supartz injection #3. PFSH Medical History HTN (hypertension) Hyperlipidemia Social History Alcohol intake: never Patient Tobacco Use Status: Never used Tobacco Current occupational status: retired Current occupation: rt handed Review of Systems Const All systems reviewed & are unremarkable except as noted in HPI and below Physical Exam Vital Signs: BMI result Body Mass Index 26.6 Const General: cooperative, healthy appearing, comfortable and no acute distress Orientation/consciousness: patient oriented x3 Neck Neck: Yes normal visual inspection and Yes no JVD Chest Chest palpation & inspection: normal inspection of the chest Resp Effort & Inspection: normal respiratory effort Auscultation: clear to auscultation bilaterally, crackles (no), rales (no), rhonchi (no) and wheezes (no) Cardio Jugular venous distension: no JVD Rate: regular rate Rhythm: regular rhythm Heart sounds: S1 normal heart sound present, S2 normal heart sound present, Murmur heart sound present (no) and Rub heart sound present (no) Neuro General: patient oriented x3 Extrem Other: Bilateral knee: Skin intact, no erythema or joint effusion. Tenderness along the medial and lateral joint line. Full ROM with crepitus. Negative Naomi?s. No ligamentous laxity. NVI. General: Yes normal to inspection, Yes no pedal edema and Yes no calf tenderness Office Procedures Joint Injection/Aspiration Joint Injection/Aspiration Details: #3 supartz Primary Site: right knee Secondary Site: left knee Prep: site was prepped using aseptic technique, ethochloride spray was applied and injection warnings given Injected: in the joint Approach Used: anterolateral Procedure: The patient tolerated the procedure well Coding 35519 - Glenohumeral/Tronchanteric Bursa/Intraarticular Procedure code (CPT) selection complete Assessment & Plan Assessment & Plan (1) Bilateral primary osteoarthritis of knee: Code(s): M17.0 - Bilateral primary osteoarthritis of knee Category: Medical Plan We discussed options today, which include Supartz injection. The patient did consent to move forward with the bilateral knee #3 Supartz injection, which was tolerated well. I recommended rest, ice, and elevation and OTC anti- inflammatories as needed for discomfort. If symptoms persist or worsen over the next 6-8 weeks, patient will contact the office, otherwise as needed. Patient Instructions: Scribed for Bailey Wallace PA-C, by Leny Herrera district medical examiner, on 05/15/2024 at 10:30 AM EST. I, Bailey Wallace PA-C, have personally reviewed and agree with the information entered by the scribe. Coding Level of Care Code Procedure Only Diagnoses Bilateral primary osteoarthritis of knee M17.0 CPT Codes Coding - Joint 7: 79174 - Glenohumeral/Tronchanteric Bursa/Intraarticular ([id number])
== END 2024-05-15 13:14 | disposition home or self-care (01) ==
PROVIDERS: PCP Internal Medicine; Visit Provider Physician Assistant
DX: M17.0 Bilateral primary osteoarthritis of knee (principal)
CPT/HCPCS: 20610

== ENCOUNTER → 2024-05-15 10:18 | Outpatient (BNVA) | payer MEDICARE, SELFPAY | PROVIDERS: PCP Internal Medicine; Visit Provider Physician Assistant | DX: M17.0 Bilateral primary osteoarthritis of knee (principal) | CPT/HCPCS: 20610; J7321 ==

== ENCOUNTER 2024-11-06 09:55 | Outpatient (REF) | payer MEDICARE, SELFPAY | END 2024-11-06 09:56 | disposition home or self-care (01) | LOC: HO.MAMMO 09:55 | PROVIDERS: PCP Internal Medicine; Visit Provider Internal Medicine | DX: Z12.31 Encounter for screening mammogram for malignant neoplasm of breast (principal) | CPT/HCPCS: 77063; 77067 ==

== ENCOUNTER 2025-05-15 14:47 | Outpatient (AMB) | payer MEDICARE, SELFPAY ==
--- NOTE | 2025-05-15 14:52 | MHC.OFFVIS ---
Intake Visit Reasons: OV- Inj-B/L knee Supartz #1 Intake Note: Jennifer is an 85 year old female who presents today for bilateral knee Supartz #1 injection. Patient reports injection provided some relief, requesting to repeat gel injections. Allergies codeine Allergy (Unknown, Verified 05/15/24 10:27) HIVES Codeine Phosphate Allergy (Unknown, Uncoded 05/15/24 10:27) hives Medication List - Last Reconciled 05/15/25 by Bailey Wallace PA-C celecoxib 200 mg PO BID lisinopril 5 mg PO DAILY lisinopril 10 mg PO DAILY pravastatin 10 mg PO BEDTIME silver sulfadiazine 1% (Silvadene) 1 appl topical BID PRN HPI HPI OV- Inj-B/L knee Supartz #1: Details: 85-year-old female presents to the office today for #1. Bilateral knee Supartz injections. She has been doing well over the last several months but over the last couple of weeks her pain has progressively gotten worse and is limiting her activities. [facility] Medical History HTN (hypertension) Hyperlipidemia Social History Alcohol intake: never Patient Tobacco Use Status: Never used Tobacco Current occupational status: retired Current occupation: rt handed Review of Systems Const All systems reviewed & are unremarkable except as noted in HPI and below Physical Exam Const General: cooperative, healthy appearing, comfortable and no acute distress Orientation/consciousness: patient oriented x3 Neck Neck: Yes normal visual inspection and Yes no JVD Chest Chest palpation & inspection: normal inspection of the chest Resp Effort & Inspection: normal respiratory effort Auscultation: clear to auscultation bilaterally, crackles (no), rales (no), rhonchi (no) and wheezes (no) Cardio Jugular venous distension: no JVD Rate: regular rate Rhythm: regular rhythm Heart sounds: S1 normal heart sound present, S2 normal heart sound present, Murmur heart sound present (no) and Rub heart sound present (no) Neuro General: patient oriented x3 Extrem Other: Bilateral knee: Skin intact, no erythema or joint effusion. Tenderness along the medial and lateral joint line. Full ROM with crepitus. Negative Naomi?s. No ligamentous laxity. NVI. General: Yes normal to inspection, Yes no pedal edema and Yes no calf tenderness Office Procedures AMB Joint Injection/Aspiration Joint Injection/Aspiration Details: supartz Primary Site: right knee Secondary Site: left knee Prep: site was prepped using aseptic technique, ethochloride spray was applied and injection warnings given Injected: in the joint Approach Used: anterolateral Procedure: The patient tolerated the procedure well and there was some relief with the local anesthesia Coding 44546 - Glenohumeral/Tronchanteric Bursa/Intraarticular Procedure code (CPT) selection complete Assessment & Plan Assessment & Plan (1) Bilateral primary osteoarthritis of knee: Code(s): M17.0 - Bilateral primary osteoarthritis of knee Category: Medical Plan: Plan was to proceed with gel injection today. #1 supartz Injection performed today , bilateral knees, which the patient tolerated well. She will rest ice and use anti-inflammatories as needed for the next several days. I will see her back in 1 week for injection number 2 Medications: New silver sulfadiazine 1% (Silvadene) apply a 1.5 mm thickness 1 appl topical BID PRN 20 grams 1RF wound healing Coding Level of Care Code Procedure Only Diagnoses Bilateral primary osteoarthritis of knee M17.0 CPT Codes Coding - Joint 7: 35294 - Glenohumeral/Tronchanteric Bursa/Intraarticular ([id number])
--- OUTSIDE RECORDS SUMMARY | 2025-05-15 14:53 | XMS_ITS ---
Author Name [facility] Organization Unknown Care Team Organization Name Specialty Phone Email Start Date End Da te [facility] NULL Primary Care 10/31/2022 06/10/2024 [facility] Termed, PROVIDER Primary Care 08/30/202205/23
--- OUTSIDE RECORDS SUMMARY | 2025-05-15 14:53 | XMS_ITS | Clinical Summary ---
Author Organization [facility] Address [address] [place] [address] Phone Care Team Providers Care Dirt Shoveler Name Role Phone Renard Haynes MD Primary Care Provider [phone] Allergies Active Allergy Reactions Criticality Noted Date Comments Codeine-Guaifenesin Hives 10/09/2019 Medications MULTIVITAMIN ORAL Take 1 capsule by mouth daily. Active Medication-Free Text Take 1 capsule by mouth daily. Arthrozene for arthritis Active Medication-Free Text Take 1 Scoop by mouth daily. Collagen Nature Path Active Medication-Free Text Take 1 capsule by mouth daily. Brar Guard Active Medication-Free Text Take 1 capsule by mouth daily. lipidene Active celecoxib (CELEBREX) 200 MG capsule Take 1 capsule by mouth 2 (two) times a day. 4 Active atorvastatin (LIPITOR) 10 MG tabletIndications: Other hyperlipidemia take 1 tablet by mouth every day 90 tablet 3 4 Active lisinopril (PRINIVIL,ZESTRIL) 10 MG tabletIndications: Benign essential hypertension TAKE 1 TABLET BY MOUTH EVERY DAY 90 tablet 1 5 Active Active Problems Problem Noted Date Diagnosed Date Synovial cyst of left wrist 12/12/2022 Assessment & Plan (12/12/2022 11:15 AM EST): Will monitor to see if any worsening symptoms, signs of infection. As this is not painful or tender or limiting function at this time she is going to defer orthopedic follow-up. Osteopenia of multiple sites 12/01/2022 PVD (peripheral vascular disease) 02/02/2021 Urinary frequency 11/30/2020 Assessment & Plan (11/30/2020 11:00 AM EST): Check UA today. Jennifer reports she overall gets enough sleep and does not feel tired during the daytime despite waking to urinate. She will follow-up if this becomes more bothersome. Other insomnia 05/27/2020 Assessment & Plan (11/30/2020 11:00 AM EST): Declines treatment. Seems to be more of a urinary issue rather than a sleeping issue. Chronic pain of both knees 10/09/2019 Benign essential hypertension 10/09/2019 Assessment & Plan (12/12/2022 11:13 AM EST): poorly controlled, I would like to get another BP reading in a couple of weeks to confirm if this is her baseline. If so, will recommend medication adjustment. Assessment & Plan (11/30/2020 10:59 AM EST): Well-managed Other hyperlipidemia 10/09/2019 Assessment & Plan (12/12/2022 11:14 AM EST): Long discussion regarding statin therapy, indications, goals of treatment. We discussed that she is doing relatively well for being 82, is independent, does not have any major health issues or difficulties at this time. We discussed the pros and cons of continuing statin therapy. I do not see any drawback to this, and she has high LDL. We discussed the preventative nature of treatment and will monitor for any side effects that she resumes medication therapy. She will check a lipid panel, LFTs over the summer. She would like to go back on the lowest dose of atorvastatin possible, will prescribe atorvastatin 10 mg to be taken nightly. Assessment & Plan (11/30/2020 10:59 AM EST): Await fasting labs Depression 10/09/2019 Immunizations Immunization Administration Dates Next Due Tdap 09/01/2021 Zoster live 04/28/2012 Family History Medical History Relation Comments Heart attack Father Cancer Mother Relation Status Comments Brother Alive TONSIL CANCER Daughter 1 Alive Daughter 2 Alive Father (Age 45) at age 45 d/t heart attack Mother (Age 39) colon cANCER Son Alive Social History Tobacco Use Types Packs/Day Years Used Date Smoking Tobacco: Never Smokeless Tobacco: Never Comments:only 20 times in [place] bugs away Alcohol Use Standard Drinks/Week Comments Yes 3 (1 standard drink = 0.6 oz pure alcohol) 3-4 drinks, rum and coke weekly, if that Education Answer Date Recorded Are you interested in more education? Not on angelica e 02/17/2023 Are you concerned about learning? Not on file 02/17/2023 No 02/17/2023 No 02/17/2023 Digital Access Answer Date Recorded No 03/14/2023 No 03/14/2023 Reliable internet access at home? Not on file 03/14/2023 Device with a working camera? Not on file Intimate Partner Violence Answer Date R ecorded Denied Basic Needs Not on file 12/26/2023 In the past 12 months have y ou been in a relationship with a person who hurts, threatens, or tries to control you? No 12/26/2023 Worried food would run out Not on file 12/25 In the past 12 months have y ou been in a relationship with a person who hurts, threatens, or tries to control you? No 12/26/2023 Comments Unknown Sex and Gender Information Value Date Recorded Sex Assigned at Not on file Legal Sex Female 3:28 PM EDT Gender Identity Not on file Sexual Orientation Not on file Last Filed Vital Signs Vital Sign Reading Time Taken Comments Blood Pressure 136/80 12/26/2023 9:24 AM EST Pulse 72 12/26/2023 9:24 AM EST Temperature 35.9 C (96.7 F) 12/26/2023 9:24 AM EST Respiratory Rate 16 12/26/2023 9:24 AM EST Oxygen Saturation 97% 12/26/2023 9:24 AM EST Inhaled Oxygen Concentration - - Weight 78.9 kg (174 lb) 12/26/2023 9:24 AM EST Height 156.4 cm (5' 1.58 ) 12/26/2023 9:24 AM ES T Body Mass Index 32.27 12/26/2023 9:24 AM EST Plan of Treatment Health Maintenance Due Date Last Done Comments PNEUMOCOCCAL VACCINES (50+ years) (1 of 1 - PCV) 1988 ZOSTER VACCINES (2 of 3) 06/23/2012 04/28/2012 RSV VACCINE (1 - 1-dose 75+ series) 2013 FOLLOW UP BONE DENSITY TESTING 12/22/2023 12/21/2021 COVID-19 VACCINE (1 - season) 2024 CREATININE LEVEL 12/20/2024 12/21/2023, 04/2023, 12/07/2021, Additional history exists POTASSIUM LEVEL 12/20/2024 12/21/2023, 04/2023, 12/07/2021, Additional history exists DEPRESSION SCREENING 12/25/2024 12/26/2023 Adult Td,Tdap Booster 09/01/2031 09/01/2021 OSTEOPOROSIS SCREENING INITIAL (ONE-TIME) Completed 12/21/2021 HEPATITIS A VACCINES Aged Out No long er eligible based on patient's age to complete this topic HIB VACCINES Aged Out No longer eligi ble based on patient's age to complete this topic MENINGOCOCCAL VACCINES (ACWY) Aged Out No longer eligible based on patient's age to complete this topic MENINGOCOCCAL VACCINES (B) Aged Out N o longer eligible based on patient's age to complete this topic Medical Devices Not on file Procedures Procedure Name Priority Date/Time Associated Diagnosis Comments COMPREHENSIVE METABOLIC PANEL Routine 12/21/2023 8:28 AM EST Pure hypercholesterolemia Essential hypertension OUTSIDE BONE DENSITY SCREENING Routine 12/21/2021 from Last 3 Months or Most Recently Relevant to Health Maintenance Results * (ABNORMAL) Comprehensive metabolic panel (12/21/2023 8:28 AM EST) SODIUM 142 133 - 146 mmol/L POTASSIUM 4.4 3.3 - 5.1 mmol/L CHLORIDE 105 96 - 108 mmol/L CO2 28 21 - 35 mmol/L BUN 22(H) 6 - 19 mg/dL CREATININE 0.90 0.5 - 1.5 mg/dL GLUCOSE 91 70 - 99 mg/dL ALBUMIN 3.9 3.9 - 4.8 g/dL TOTAL PROTEIN 6.2(L) 6.5 - 8.0 g/dL CALCIUM 9.1 8.4 - 10.3 mg/dL ALKALINE PHOSPHATASE 94 39 - 117 U/L TOTAL BILIRUBIN 0.7 0.0 - 1.2 mg/dL AST 24 0 - 37 U/L ALT 11 0 - 40 U/L GLOBULIN 2.3 1 - 4.8 g/dL EGFR 63 >59 mL/min/1.7 3m2 Comment:Estimated glomerular filtration rate calculated using the CKD-EPI refit equation. ANION GAP 13 10 - 20 mmol/L Blood 12/21/2023 8:28 AM EST 12/21/2023 8:30 AM EST Renard Haynes MD LAB BLOOD ORDERABLES Final Re sult [address] [place] [address] * OUTSIDE BONE DENSITY SCREENING (12/21/2021) BONE DENSITY SCREENING - EXTERNAL osteopenia Historical Provider HEALTH MAINTENANCE Final Result from Last 3 Months or Most Recently Relevant to Health Maintenance Insurance [employer] Care Teams Dirt Shoveler Relationship Specialty Start Date End Date Renard Haynes MD [address] [place] [phone] [email or web address] PCP - General Internal Medicine 03/25/23 Additional Source Comments The information contained in this document represents components of the legal health record. It is not the complete legal health record.[facility]
--- OUTSIDE RECORDS SUMMARY | 2025-05-15 14:54 | XMS_ITS | Patient Health Record ---
Author Organization [facility] [place] Address [address] [place] [address] Care Team Providers Care Floral Assistant Name Role Phone Lenin Zuñiga MD Primary Care Provider Ariella Matute Unavailable [phone] Georges Page Unavailable [phone] Allergies Allergen (clinical drug ingredient) Drug/Non Drug Allergy documented on EMR Reaction Allergy Type Onset Date Status codeine Codeine hives Drug Allergy Active Reason For Referral Diagnosis 1 Atherosclerosis of n ative artery of both lower extremities, with unspecified presence of clinical manifestation (I70.203) Diagnosis 2 Essential hypertensi on (I10) Diagnosis 3 Pain in right toe(s) (M79.674) Diagnosis 4 Pain in left toe(s) (M79.675) Diagnosis 5 Tinea unguium (B35.1 ) Diagnosis 6 Skin disease (L98.9) Referring Provider First Name Renard Referring Provider Last Name [place] Referred Organization [facility] Referred Provider Ariella Marques Referred Address [address] [facility],[place], [place],[address], Referred Provider Specialty Podiatry Referral Priority Routine Medications Medication SIG (Take, Route, Frequency, Duration) Notes Start Date End Date Status Atorvastatin Calcium 40 MG 1 tablet Oral ly Once a day; Duration: 30 day(s) Active ABC Plus Senior - as directed Orally Active Lisinopril 10 MG 1 tablet Orally Once a day; Duration: 30 day(s) Active Joint Health - as directed Orally Active Ammonium Lactate 12 % 1 application Exte rnally to affected areas of dry skin to feet except for between the toes Twice a day; Duration: 30 days Active Immunizations Vaccine Route Administration Date Status Comme nts COVID-19 Noah & Noah/Randolph Unknown 11/11/2021 R efused Social History Tobacco Use: Social History Observation Description Date Details (start date - stop date) Never Smoker NA - NA Tobacco use other than smoking: Question Answer Notes Are you an other tobacco user? No Tobacco Control (Standard) Question Answer Notes Tobacco use: Nonsmoker Additional Findings: Tobacco non-user Current no nsmoker AUDIT-C (Standard) Question Answer Notes Did you have a drink containing alcohol in the p ast year? No Points 0 Interpretation Negative Problems Problem Type SNOMED Code ICD Code Onset Dates Problem Status W/U Status Risk Notes Problem Bilateral atherosclerosis of arteries of lower limbs (disorder) (50661327875405716 ) Atherosclerosis of [place] artery of both lower extremities, with unspecified presence of clinical manifestation (I70.203) Active confirmed Q7(A), Q8(2B), Q9(1B,2 C) Problem Essential hypertension (37192757) Essential hypertension (I10) Active confirmed Vital Signs Blood pressure diastolic 83 mm Hg 02/06/2025 Height 5ft 4in in 02/06/2025 Blood pressure systolic 130 mm Hg 02/06/2025 Weight 170 lbs 02/06/2025 BMI 29.18 kg/m2 02/06/2025 Procedures Procedure Date Ordered Date Performed Result Body Sit e 11289-NJKMZAW NAIL, 6 OR MORE 10/03/2024 N/A 39677-VJFJ SKIN LESIONS, 2 TO 4 10/03/2024 N/A 86523-CBTCOOC NAIL, 6 OR MORE 02/06/2025 N/A 44085-CQUA SKIN LESIONS, 2 TO 4 02/06/2025 N/A Encounters Encounter Location Date Provider Diagnosis [facility] [address] [address] 06/06/2024 Georges Page Tinea unguium B35.1 ; Pain in right toe(s) M79.674 ; Pain in left toe(s) M79.675 ; Skin disease L98.9 ; Localized edema R60.0 ; Ingrowing nail L60.0 ; Unspecified atherosclerosis of [place] arteries of extremities, bilateral legs I70.203 and Xerosis cutis L85.[address] [facility] [address] 10/03/2024 Ariella Marques Xerosis of skin L85.3 ; Atherosclerosis of [place] artery of both lower extremities, with unspecified presence of clinical manifestation I70.203 ; Tinea unguium B35.1 ; Pain in right toe(s) M79.674 and Pain in left toe(s) M79.675 [facility] [place] [address] [place] [address] 02/06/2025 Ariella Marques Atherosclerosis of [place] artery of both lower extremities, with unspecified presence of clinical manifestation I70.203 ; Tinea unguium B35.1 ; Pain in right toe(s) M79.674 and Pain in left toe(s) M79.675 Assessments Encounter Date Diagnosis (ICD Code) Assessment Notes Treatment Notes Treatment Clinical Notes Section Notes 06/06/2024 Tinea unguium (ICD-10 - B35.1) 10/03/2024 Xerosis of skin (ICD-10 - L85.3) 02/06/2025 Atherosclerosis of [place] artery of both lower extremities, with unspecified presence of clinical manifestation (ICD-10 - I70.203) Q7(A), Q8(2B), Q9(1B,2C) 10/03/2024 Atherosclerosis of [place] artery of both lower extremities, with unspecified presence of clinical manifestation (ICD-10 - I70.203) Q7(A), Q8(2B), Q9(1B,2C) 02/06/2025 Tinea unguium (ICD-10 - B35.1) 06/06/2024 Pain in right toe(s) (ICD-10 - M79.674) 06/06/2024 Pain in left toe(s) (ICD-10 - M79.675) 10/03/2024 Tinea unguium (ICD-10 - B35.1) 02/06/2025 Pain in right toe(s) (ICD-10 - M79.674) 06/06/2024 Skin disease (ICD-10 - L98.9) 10/03/2024 Pain in right toe(s) (ICD-10 - M79.674) 02/06/2025 Pain in left toe(s) (ICD-10 - M79.675) 06/06/2024 Localized edema (ICD-10 - R60.0) 10/03/2024 Pain in left toe(s) (ICD-10 - M79.675) 06/06/2024 Ingrowing nail (ICD-10 - L60.0) 06/06/2024 Unspecified atherosclerosis of [place] arteries of extremities, bilateral legs (ICD-10 - I70.203) 06/06/2024 Xerosis cutis (ICD-10 - L85.3) Plan Of Treatment Pending Test Test Name Order Date [id number]-WRJBOPQ NAIL, 6 OR MORE 10/03/2024 59025-JGMVREI NAIL, 6 OR MORE 02/06/2025 12633-VUBP SKIN LESIONS, OVER 4 05/05/20 21 93079-NLCN SKIN LESIONS, OVER 4 08/11/20 21 62795-IIVD SKIN LESIONS, OVER 4 11/11/19 22 77417-BLUQ SKIN LESIONS, 2 TO 4 10/03/20 24 07792-FVAX SKIN LESIONS, 2 TO 4 02/07/20 25 01902-HQAR SKIN LESIONS, 2 TO 4 02/02/20 21 Next Appt Details Provider Name:Ariella Knutson stacy, 05/22/2025 02:30:00 PM, [address] [facility], [place], [address], Insurance Providers Payer Name Payer Address Payer Phone Subscriber Number Group Number Insured Name Patient Relationship to Insured Coverage Start Date Coverage End Date [employer] Preferred [address] [place] [address] [phone] [id number] Jennifer Tang Self - patient is the insured Medical (General) History Medical History History ICD Code High blood pressure Measles Mumps Chicken pox Surgical History Surgery Date(Month/Year) eye surgery 2 X (Eye Buckle & Lasik) hysterectomy Tooth extraction 01/13
--- OUTSIDE RECORDS SUMMARY | 2025-05-15 14:54 | XMS_ITS | Clinical Summary ---
Author Organization [facility] Address [address] [place] [address] Care Team Providers Care Roll Trucker Name Role Phone Unavailable Primary Care Provider Unavailabl e Social History Tobacco Use Types Packs/Day Years Used Date Smoking Tobacco: Never Assessed Comments Unknown Sex and Gender Information Value Date Recorded Sex Assigned at Not on file Legal Sex Female 2:37 PM EDT Gender Identity Not on file Sexual Orientation Not on file Plan of Treatment Health Maintenance Due Date Last Done Comments DTaP/Tdap/Td Vaccines (1 - Tdap) 1959 Pneumococcal Vaccines 50+ (1 of 1 - PCV) 1988 Zoster (Shingles) Vaccine (1 of 2) 1988 RSV Vaccine 60 years and old er and Patients (1 - 1-dose 75+ series) 2013 COVID-19 Vaccine ( - 2023-2 5 season) 2024 Hepatitis B Vaccines Aged Out No long er eligible based on patient's age to complete this topic
== END 2025-05-15 15:37 | disposition home or self-care (01) ==
PROVIDERS: PCP Internal Medicine; Visit Provider Physician Assistant
DX: M17.0 Bilateral primary osteoarthritis of knee (principal)
CPT/HCPCS: 20610

== ENCOUNTER → 2025-05-15 14:47 | Outpatient (BNVA) | payer MEDICARE, SELFPAY | PROVIDERS: PCP Internal Medicine; Visit Provider Physician Assistant | DX: M17.0 Bilateral primary osteoarthritis of knee (principal) | CPT/HCPCS: 20610; J7321 ==

== ENCOUNTER 2025-05-22 10:00 | Outpatient (AMB) | payer MEDICARE, SELFPAY ==
--- NOTE | 2025-05-22 10:07 | MHC.OFFVIS ---
Intake Visit Reasons: INJ- B/L knee Supartz#2 Intake Note: Jennifer is an 85 year old female who presents today for bilateral knee Supartz injections #2. Patient reports injection provided relief to her left knee, however her right knee is still achy. Allergies codeine Allergy (Unknown, Verified 05/22/25 10:12) HIVES Codeine Phosphate Allergy (Unknown, Uncoded 05/22/25 10:12) hives Medication List - Last Reconciled 05/22/25 by Bailey Wallace PA-C celecoxib 200 mg PO BID lisinopril 5 mg PO DAILY lisinopril 10 mg PO DAILY pravastatin 10 mg PO BEDTIME silver sulfadiazine 1% (Silvadene) 1 appl topical BID PRN HPI HPI INJ- B/L knee Supartz#2: Details: 85-year-old female presents to the office today for #2. Bilateral knee Supartz injections. She c/o right knee pain s/p injections. [facility] Medical History HTN (hypertension) Hyperlipidemia Social History Alcohol intake: never Patient Tobacco Use Status: Never used Tobacco Current occupational status: retired Current occupation: rt handed Review of Systems Const All systems reviewed & are unremarkable except as noted in HPI and below Physical Exam Const General: cooperative, healthy appearing, comfortable and no acute distress Orientation/consciousness: patient oriented x3 Neck Neck: Yes normal visual inspection and Yes no JVD Chest Chest palpation & inspection: normal inspection of the chest Resp Effort & Inspection: normal respiratory effort Auscultation: clear to auscultation bilaterally, crackles (no), rales (no), rhonchi (no) and wheezes (no) Cardio Jugular venous distension: no JVD Rate: regular rate Rhythm: regular rhythm Heart sounds: S1 normal heart sound present, S2 normal heart sound present, Murmur heart sound present (no) and Rub heart sound present (no) Neuro General: patient oriented x3 Extrem Other: Bilateral knee: Skin intact, no erythema or joint effusion. Tenderness along the medial and lateral joint line. Full ROM with crepitus. Negative Naomi?s. No ligamentous laxity. NVI. General: Yes normal to inspection, Yes no pedal edema and Yes no calf tenderness Office Procedures AMB Joint Injection/Aspiration Joint Injection/Aspiration Details: supartz Primary Site: right knee Secondary Site: left knee Prep: site was prepped using aseptic technique, ethochloride spray was applied and injection warnings given Injected: in the joint Approach Used: anterolateral Procedure: The patient tolerated the procedure well Coding 12896 - Glenohumeral/Tronchanteric Bursa/Intraarticular Procedure code (CPT) selection complete Assessment & Plan Assessment & Plan (1) Bilateral primary osteoarthritis of knee: Code(s): M17.0 - Bilateral primary osteoarthritis of knee Category: Medical Plan: Plan was to proceed with gel injection today. #2 supartz Injection performed today , bilateral knees, which the patient tolerated well. She will rest ice and use anti-inflammatories as needed for the next several days. I will see her back in 1 week for injection number 3 Coding Level of Care Code Procedure Only Diagnoses Bilateral primary osteoarthritis of knee M17.0 CPT Codes Coding - Joint 7: 63186 - Glenohumeral/Tronchanteric Bursa/Intraarticular ([id number])
--- OUTSIDE RECORDS SUMMARY | 2025-05-22 10:42 | XMS_ITS | Clinical Summary ---
Author Organization [facility] Address [address] [place] [address] Care Team Providers Care Customer Service Engineer Name Role Phone Unavailable Primary Care Provider [...]
--- OUTSIDE RECORDS SUMMARY | 2025-05-22 10:42 | XMS_ITS | Clinical Summary ---
Author Organization [facility] Address [address] [place] [address] Phone Care Team Providers Care Director Bioinformatics Name Role Phone Renard Haynes MD Primary Care Provider [phone] Allergies Active Allergy Reactions Criticality Noted Date [...] EST) SODIUM 142 133 - 146 mmol/L [facility] POTASSIUM 4.4 3.3 - 5.1 mmol/L [facility] CHLORIDE 105 96 - 108 mmol/L [facility] CO2 28 21 - 35 mmol/L [facility] BUN 22(H) 6 - 19 mg/dL [facility] CREATININE 0.90 0.5 - 1.5 mg/dL [facility] GLUCOSE 91 70 - 99 mg/dL [facility] ALBUMIN 3.9 3.9 - 4.8 g/dL [facility] TOTAL PROTEIN 6.2(L) 6.5 - 8.0 g/dL [facility] CALCIUM 9.1 8.4 - 10.3 mg/dL [facility] ALKALINE PHOSPHATASE 94 39 - 117 U/L [facility] TOTAL BILIRUBIN 0.7 0.0 - 1.2 mg/dL [facility] AST 24 0 - 37 U/L [facility] ALT 11 0 - 40 U/L [facility] GLOBULIN 2.3 1 - 4.8 g/dL [facility] EGFR 63 >59 mL/min/1.7 3m2 [facility] Comment:Estimated glomerular filtration rate calculated using the CKD-EPI refit equation. ANION GAP 13 10 - 20 mmol/L [facility] Blood 12/21/2023 8:28 AM EST 12/21/2023 8:30 AM EST Renard Haynes MD LAB BLOOD ORDERABLES Final Re sult [facility] [address] [place] [address] * OUTSIDE BONE DENSITY SCREENING [...] [employer] Care Teams Director Bioinformatics Relationship Specialty Start Date End Date Renard Haynes MD [address] [place] [phone] [email or web address] PCP - General Internal Medicine 03/25/23 Additional Source Comments The information contained in this document represents components of the legal health record. It is not the complete legal health record.[facility]
--- OUTSIDE RECORDS SUMMARY | 2025-05-22 10:42 | XMS_ITS | Patient Health Record ---
Author Organization [facility] Address [address] [place] [address] Care Team Providers Care Sample Examiner Name Role Phone Lenin Zuñiga MD Primary Care Provider Ariella Matute Unavailable [phone] Georges Page Unavailable [phone] Allergies Allergen (clinical drug ingredient) Drug/Non Drug [...] Referring Provider Last Name [place] [facility] Referred Provider Ariella Marques Referred Address [address] [facility],[place], [place],[address], Referred Provider Specialty Podiatry Referral Priority Routine [...] atherosclerosis of arteries of lower limbs (disorder) (68536222991154328 ) Atherosclerosis of [place] artery of both lower extremities, with unspecified presence of clinical manifestation (I70.203) Active confirmed Q7(A), Q8(2B), Q9(1B,2 C) Problem Essential hypertension (40407394) Essential hypertension (I10) Active confirmed Vital Signs Blood pressure diastolic 83 mm Hg 02/06/2025 Height 5ft 4in in 02/06/2025 Blood pressure systolic 130 mm Hg 02/06/2025 Weight 170 lbs 02/06/2025 BMI 29.18 kg/m2 02/06/2025 Procedures Procedure Date Ordered Date Performed Result Body Sit e 49487-BTICGVD NAIL, 6 OR MORE 10/03/2024 N/A 13672-LPOP SKIN LESIONS, 2 TO 4 10/03/2024 N/A 25092-UPVBMLY NAIL, 6 OR MORE 02/06/2025 N/A 64277-MXJB SKIN LESIONS, 2 TO 4 02/06/2025 N/A Encounters Encounter Location Date Provider Diagnosis [facility] [address] [address] 06/06/2024 Georges Page Tinea unguium B35.1 ; Pain in right toe(s) M79.674 ; Pain in left toe(s) M79.675 ; Skin disease L98.9 ; Localized edema R60.0 ; Ingrowing nail L60.0 ; Unspecified atherosclerosis of [place] arteries of extremities, bilateral legs I70.203 and Xerosis cutis L85.[address] [facility] [address] 10/03/2024 Ariella Marques Xerosis of skin L85.3 ; Atherosclerosis of [place] artery of both lower extremities, with unspecified presence of clinical manifestation I70.203 ; Tinea unguium B35.1 ; Pain in right toe(s) M79.674 and Pain in left toe(s) M79.675 [facility] [place] [address] [place] [address] 02/06/2025 Ariella Marques Atherosclerosis of [place] artery of both lower extremities, with unspecified presence of clinical manifestation I70.203 ; Tinea unguium B35.1 ; Pain in right toe(s) M79.674 and Pain in left toe(s) M79.675 Assessments Encounter Date Diagnosis (ICD Code) Assessment Notes Treatment Notes Treatment Clinical Notes Section Notes 06/06/2024 Tinea unguium (ICD-10 - B35.1) 10/03/2024 Xerosis of skin (ICD-10 - L85.3) 02/06/2025 Atherosclerosis of [place] artery of both lower extremities, with unspecified presence of clinical manifestation (ICD-10 - I70.203) Q7(A), Q8(2B), Q9(1B,2C) 10/03/2024 Atherosclerosis of [place] artery of both lower extremities, with unspecified [...] (ICD-10 - L60.0) 06/06/2024 Unspecified atherosclerosis of [place] arteries of extremities, bilateral legs (ICD-10 - I70.203) 06/06/2024 Xerosis cutis (ICD-10 - L85.3) Plan Of Treatment Pending Test Test Name Order Date 07418-WHSPVUB NAIL, 6 OR MORE 10/03/2024 08297-QKSLYSN NAIL, 6 OR MORE 02/06/2025 48010-VGAY SKIN LESIONS, OVER 4 05/05/20 21 48039-KLZG SKIN LESIONS, OVER 4 08/11/20 21 09466-DGKX SKIN LESIONS, OVER 4 11/11/19 22 08245-VGVQ SKIN LESIONS, 2 TO 4 10/03/20 24 17110-ASUB SKIN LESIONS, 2 TO 4 02/07/20 25 82085-ZYRM SKIN LESIONS, 2 TO 4 02/02/20 21 Next Appt Details Provider Name:Ariella Knutson stacy, 05/22/2025 02:30:00 PM, [address] [facility], [place], [address], Insurance Providers Payer Name Payer Address Payer Phone Subscriber Number Group Number Insured Name Patient Relationship to Insured Coverage Start Date Coverage End Date [employer] Medicare Preferred [address] [place] [address] [phone] [id number] Jennifer Tang Self - patient is the insured Medical (General) History Medical History History ICD Code High blood pressure Measles Mumps Chicken pox Surgical History Surgery Date(Month/Year) eye surgery 2 X (Eye Buckle & Lasik) hysterectomy Tooth extraction 01/13
== END 2025-05-22 10:55 | disposition home or self-care (01) ==
LOC: HO.HOS 10:01
PROVIDERS: PCP Internal Medicine; Visit Provider Physician Assistant
DX: M17.0 Bilateral primary osteoarthritis of knee (principal)
CPT/HCPCS: 20610

== ENCOUNTER → 2025-05-22 10:00 | Outpatient (BNVA) | payer MEDICARE, SELFPAY | PROVIDERS: PCP Internal Medicine; Visit Provider Physician Assistant | DX: M17.0 Bilateral primary osteoarthritis of knee (principal) | CPT/HCPCS: 20610; J7321 ==

== ENCOUNTER 2025-05-29 13:29 | Outpatient (AMB) | payer MEDICARE, SELFPAY ==
--- OUTSIDE RECORDS SUMMARY | 2025-05-29 13:32 | XMS_ITS | Clinical Summary ---
Author Organization [facility] Address [address] [place] [address] Phone Care Team Providers Care Food Preparer Name Role Phone Renard Haynes MD Primary Care Provider Allergies Active Allergy Reactions Criticality Noted Date [...] EST) SODIUM 142 133 - 146 mmol/L [facility] POTASSIUM 4.4 3.3 - 5.1 mmol/L [facility] CHLORIDE 105 96 - 108 mmol/L [facility] CO2 28 21 - 35 mmol/L [facility] BUN 22(H) 6 - 19 mg/dL [facility] CREATININE 0.90 0.5 - 1.5 mg/dL [facility] GLUCOSE 91 70 - 99 mg/dL [facility] ALBUMIN 3.9 3.9 - 4.8 g/dL [facility] TOTAL PROTEIN 6.2(L) 6.5 - 8.0 g/dL [facility] CALCIUM 9.1 8.4 - 10.3 mg/dL [facility] ALKALINE PHOSPHATASE 94 39 - 117 U/L [facility] TOTAL BILIRUBIN 0.7 0.0 - 1.2 mg/dL [facility] AST 24 0 - 37 U/L [facility] ALT 11 0 - 40 U/L [facility] GLOBULIN 2.3 1 - 4.8 g/dL [facility] EGFR 63 >59 mL/min/1.7 3m2 [facility] Comment:Estimated glomerular filtration rate calculated using the CKD-EPI refit equation. ANION GAP 13 10 - 20 mmol/L [facility] Blood 12/21/2023 8:28 AM EST 12/21/2023 8:30 AM EST Renard Haynes MD LAB BLOOD ORDERABLES Final Re sult [facility] [address] [place] [address] * OUTSIDE BONE DENSITY SCREENING [...] [employer] Care Teams Food Preparer Relationship Specialty Start Date End Date Renard Haynes MD [address] [place] [phone] [email or web address] PCP - General Internal Medicine 03/25/23 Additional Source Comments The information contained in this document represents components of the legal health record. It is not the complete legal health record.[facility]
--- OUTSIDE RECORDS SUMMARY | 2025-05-29 13:32 | XMS_ITS | Clinical Summary ---
Author Organization [facility] Address [address] [place] [address] Care Team Providers Care Credit Collections Clerk Name Role Phone Unavailable Primary Care Provider [...]
--- OUTSIDE RECORDS SUMMARY | 2025-05-29 13:32 | XMS_ITS | Patient Health Record ---
Author Organization [facility] Address [address] [place] [address] Care Team Providers Care Hearing Aid Fitter Name Role Phone Lenin Zuñiga MD Primary Care Provider Ariella Matute Unavailable [phone] Georges Page Unavailable [phone] Allergies Allergen (clinical drug ingredient) Drug/Non Drug [...] Referring Provider Last Name [place] [facility] Referred Provider Ariella Marques Referred Address [address] [facility],[place],[address], Referred Provider Specialty Podiatry Referral Priority Routine Medications Medication SIG (Take, Route, Frequency, Duration) Notes Start Date End Date Status Ammonium Lactate 12 % 1 application Exte rnally to affected areas of dry skin to feet except for between the toes Twice a day; Duration: 30 days Active Lisinopril 10 MG 1 tablet Orally Once a day; Duration: 30 day(s) Active Joint Health - as directed Orally Active Atorvastatin Calcium 40 MG 1 tablet Oral ly Once a day; Duration: 30 day(s) Active ABC Plus Senior - as directed Orally Active Immunizations Vaccine Route Administration Date Status Comme nts Influenza Unknown 05/22/2025 Refused COVID-19 Noah & Noah/Randolph Unknown 11/11/2021 R [...] atherosclerosis of arteries of lower limbs (disorder) (57458522097648180 ) Atherosclerosis of tribe artery of both lower extremities, with unspecified presence of clinical manifestation (I70.203) Active confirmed Q7(A), Q8(2B), Q9(1B,2 C) Problem Essential hypertension (I10) Active confirmed Vital Signs Blood pressure diastolic 66 mm Hg 05/22/2025 Height 5ft 4in in 05/22/2025 Blood pressure systolic 128 mm Hg 05/22/2025 Weight 170 lbs 05/22/2025 BMI 29.18 kg/m2 05/22/2025 Procedures Procedure Date Ordered Date Performed Result Body Sit e 70606-YXRMPZI NAIL, 6 OR MORE 10/03/2024 N/A 22868-YSUW SKIN LESIONS, 2 TO 4 10/03/2024 N/A 43463-TNMTCKN NAIL, 6 OR MORE 02/06/2025 N/A 99669-AHZE SKIN LESIONS, 2 TO 4 02/06/2025 N/A 44984-VEDTKOD NAIL, 6 OR MORE 05/22/2025 N/A 41733-LBAB SKIN LESIONS, 2 TO 4 05/22/2025 N/A Encounters Encounter Location Date Provider Diagnosis [facility] [place] [address] [place] [address] 06/06/2024 Georges Page Tinea unguium B35.1 ; Pain in right toe(s) M79.674 ; Pain in left toe(s) M79.675 ; Skin disease L98.9 ; Localized edema R60.0 ; Ingrowing nail L60.0 ; Unspecified atherosclerosis of tribe arteries of extremities, bilateral legs I70.203 and Xerosis cutis L85.[address] [address] 10/03/2024 Ariella Marques Xerosis of skin L85.3 ; Atherosclerosis of tribe artery of both lower extremities, with unspecified presence of clinical manifestation I70.203 ; Tinea unguium B35.1 ; Pain in right toe(s) M79.674 and Pain in left toe(s) M79.[address] [address] 02/06/2025 Ariella Marques Atherosclerosis of tribe artery of both lower extremities, with unspecified presence of clinical manifestation I70.203 ; Tinea unguium B35.1 ; Pain in right toe(s) M79.674 and Pain in left toe(s) M79.[address] [address] 05/22/2025 Ariella Marques Atherosclerosis of tribe artery of both lower extremities, with unspecified presence of clinical manifestation I70.203 ; Tinea unguium B35.1 ; Pain in right toe(s) M79.674 and Pain in left toe(s) M79.675 Assessments Encounter Date Diagnosis (ICD Code) Assessment Notes Treatment Notes Treatment Clinical Notes Section Notes 06/06/2024 Tinea unguium (ICD-10 - B35.1) 10/03/2024 Xerosis of skin (ICD-10 - L85.3) 02/06/2025 Atherosclerosis of tribe artery of both lower extremities, with unspecified presence of clinical manifestation (ICD-10 - I70.203) Q7(A), Q8(2B), Q9(1B,2C) 05/22/2025 Atherosclerosis of tribe artery of both lower extremities, with unspecified presence of clinical manifestation (ICD-10 - I70.203) Q7(A), Q8(2B), Q9(1B,2C) 05/22/2025 Tinea unguium (ICD-10 - B35.1) 10/03/2024 Atherosclerosis of tribe artery of both lower extremities, with unspecified presence of clinical manifestation (ICD-10 - I70.203) Q7(A), Q8(2B), Q9(1B,2C) 02/06/2025 Tinea unguium (ICD-10 - B35.1) 06/06/2024 Pain in right toe(s) (ICD-10 - M79.674) 06/06/2024 Pain in left toe(s) (ICD-10 - M79.675) 10/03/2024 Tinea unguium (ICD-10 - B35.1) 02/06/2025 Pain in right toe(s) (ICD-10 - M79.674) 05/22/2025 Pain in right toe(s) (ICD-10 - M79.674) 05/22/2025 Pain in left toe(s) (ICD-10 - M79.675) 06/06/2024 Skin disease (ICD-10 - L98.9) 10/03/2024 Pain in right toe(s) (ICD-10 - M79.674) 02/06/2025 Pain in left toe(s) (ICD-10 - M79.675) 06/06/2024 Localized edema (ICD-10 - R60.0) 10/03/2024 Pain in left toe(s) (ICD-10 - M79.675) 06/06/2024 Ingrowing nail (ICD-10 - L60.0) 06/06/2024 Unspecified atherosclerosis of tribe arteries of extremities, bilateral legs (ICD-10 - I70.203) 06/06/2024 Xerosis cutis (ICD-10 - L85.3) Plan Of Treatment Pending Test Test Name Order Date 43366-VGUIXWG NAIL, 6 OR MORE 10/03/2024 26788-CIJRKBJ NAIL, 6 OR MORE 02/06/2025 00628-WNGUHOR NAIL, 6 OR MORE 05/22/2025 38854-KFQS SKIN LESIONS, OVER 4 05/05/20 21 90450-PJOQ SKIN LESIONS, OVER 4 08/11/20 21 52919-FRIF SKIN LESIONS, OVER 4 11/11/19 22 92138-CCVY SKIN LESIONS, 2 TO 4 10/03/20 24 00359-OIJB SKIN LESIONS, 2 TO 4 05/22/20 25 39086-UFGO SKIN LESIONS, 2 TO 4 02/07/20 25 57975-LKNR SKIN LESIONS, 2 TO 4 02/02/20 Next Appt Details Provider Name:Ariella kumar, 08/28/2025 11:30:00 AM, [address] [place], [address], Insurance Providers Payer Name Payer Address Payer Phone Subscriber Number Group Number Insured Name Patient Relationship to Insured Coverage Start Date Coverage End Date [employer] Medicare Preferred [address] [place] [address] [phone] [id number] Jennifer Tang Self - patient is the insured Medical (General) History Medical History History ICD Code High blood pressure Measles Mumps Chicken pox Surgical History Surgery Date(Month/Year) eye surgery 2 X (Eye Buckle & Lasik) hysterectomy Tooth extraction 01/13
--- NOTE | 2025-05-29 13:46 | MHC.OFFVIS ---
Intake Visit Reasons: INJ- B/L knee Supartz #3 Intake Note: Jennifer is an 85 year old female who presents today for bilateral knee Supartz injection #3. Allergies codeine Allergy (Unknown, Verified 05/29/25 14:06) HIVES Codeine Phosphate Allergy (Unknown, Uncoded 05/29/25 14:06) hives HPI HPI INJ- B/L knee Supartz #3: Details: 85-year-old female presents to the office today for #3. Bilateral knee Supartz injections. [facility] History HTN (hypertension) Hyperlipidemia Social History Alcohol intake: never Patient Tobacco Use Status: Never used Tobacco Current occupational status: retired Current occupation: rt handed Review of Systems Const All systems reviewed & are unremarkable except as noted in HPI and below Physical Exam Const General: cooperative, healthy appearing, comfortable and no acute distress Orientation/consciousness: patient oriented x3 Neck Neck: Yes normal visual inspection and Yes no JVD Chest Chest palpation & inspection: normal inspection of the chest Resp Effort & Inspection: normal respiratory effort Auscultation: clear to auscultation bilaterally, crackles (no), rales (no), rhonchi (no) and wheezes (no) Cardio Jugular venous distension: no JVD Rate: regular rate Rhythm: regular rhythm Heart sounds: S1 normal heart sound present, S2 normal heart sound present, Murmur heart sound present (no) and Rub heart sound present (no) Neuro General: patient oriented x3 Extrem Other: Bilateral knee: Skin intact, no erythema or joint effusion. Tenderness along the medial and lateral joint line. Full ROM with crepitus. Negative Naomi?s. No ligamentous laxity. NVI. General: Yes normal to inspection, Yes no pedal edema and Yes no calf tenderness Office Procedures AMB Joint Injection/Aspiration Joint Injection/Aspiration Details: supartz Primary Site: right knee Secondary Site: left knee Prep: site was prepped using aseptic technique, ethochloride spray was applied and injection warnings given Injected: in the joint Approach Used: anterolateral Procedure: The patient tolerated the procedure well Coding 92210 - Glenohumeral/Tronchanteric Bursa/Intraarticular Procedure code (CPT) selection complete Assessment & Plan Assessment & Plan (1) Bilateral primary osteoarthritis of knee: Code(s): M17.0 - Bilateral primary osteoarthritis of knee Category: Medical Plan: Plan was to proceed with gel injection today. #3 supartz Injection performed today , bilateral knees, which the patient tolerated well. She will rest ice and use anti-inflammatories as needed for the next several days. I will see her back in 6 months for repeat gel injections. Coding Level of Care Code Procedure Only Diagnoses Bilateral primary osteoarthritis of knee M17.0 CPT Codes Coding - Joint 7: 45943 - Glenohumeral/Tronchanteric Bursa/Intraarticular ([id number])
== END 2025-05-29 14:34 | disposition home or self-care (01) ==
LOC: HO.HOS 13:30
PROVIDERS: PCP Internal Medicine; Visit Provider Physician Assistant
DX: M17.0 Bilateral primary osteoarthritis of knee (principal)
CPT/HCPCS: 20610

== ENCOUNTER → 2025-05-29 13:29 | Outpatient (BNVA) | payer MEDICARE, SELFPAY | PROVIDERS: PCP Internal Medicine; Visit Provider Physician Assistant | DX: M17.0 Bilateral primary osteoarthritis of knee (principal) | CPT/HCPCS: 20610; J7321 ==

== ENCOUNTER 2025-10-08 09:14 | Outpatient (AMB) | payer MEDICARE, SELFPAY ==
--- OUTSIDE RECORDS SUMMARY | 2025-10-08 10:18 | XMS_ITS | Clinical Summary ---
Author Organization [facility] Address [email or web address] [place] [address] Phone Care Team Providers Care Erp Programmer Name Role Phone Renard Haynes MD Primary Care Provider [phone] Allergies Active Allergy Reactions Criticality Noted Date [...] AM EST): Await fasting labs Depression 10/09/2019 Encounters Date Type Department Care Team Description 07/24/2025 Refill [facility] [address] [facility] [place] [address] Renard Haynes MD Medication Refill from Last 3 Months Immunizations Immunization Administration Dates Next Due Tdap [...] FOLLOW UP BONE DENSITY TESTING 12/22/2023 12/21/2021 CREATININE LEVEL 12/20/2024 12/21/2023, 04/2023, 12/07/2021, Additional history exists POTASSIUM LEVEL 12/20/2024 12/21/2023, 04/2023, 12/07/2021, Additional history exists DEPRESSION SCREENING 12/25/2024 12/26/2023 INFLUENZA VACCINE (#1) 2025 COVID-19 VACCINE ( - season) 2025 Adult Td,Tdap Booster 09/01/2031 09/01/2021 OSTEOPOROSIS SCREENING [...] Date/Time Associated Diagnosis Comments COMPREHENSIVE METABOLIC PANEL (CMP) Routine 12/21/2023 8:28 AM EST Pure hypercholesterolemia Essential hypertension OUTSIDE BONE DENSITY SCREENING Routine 12/21/2021 from Last 3 Months or Most Recently Relevant to Health Maintenance Results * (ABNORMAL) Comprehensive metabolic panel (12/21/2023 8:28 AM EST) SODIUM 142 133 - 146 mmol/L [facility] POTASSIUM 4.4 3.3 - 5.1 mmol/L [facility] CHLORIDE 105 96 - 108 mmol/L [facility] CO2 28 21 - 35 mmol/L [facility] BUN 22(H) 6 - 19 mg/dL [facility] CREATININE 0.90 0.5 - 1.5 mg/dL [facility] GLUCOSE 91 70 - 99 mg/dL [facility] ALBUMIN 3.9 3.9 - 4.8 g/dL [facility] TOTAL PROTEIN 6.2(L) 6.5 - 8.0 g/dL [facility] CALCIUM 9.1 8.4 - 10.3 mg/dL [facility] ALKALINE PHOSPHATASE 94 39 - 117 U/L [facility] TOTAL BILIRUBIN 0.7 0.0 - 1.2 mg/dL [facility] AST 24 0 - 37 U/L [facility] ALT 11 0 - 40 U/L [facility] GLOBULIN 2.3 1 - 4.8 g/dL [facility] EGFR 63 >59 mL/min/1.7 3m2 [facility] Comment:Estimated glomerular filtration rate calculated using the CKD-EPI refit equation. ANION GAP 13 10 - 20 mmol/L [facility] Blood 12/21/2023 8:28 AM EST 12/21/2023 8:30 AM EST us Renard Haynes MD LAB BLOOD BKR ORDERABLES Tonia l Result Performing Organization Address City/State/[facility] Co de Phone Number [facility] [address] [place] [address] * OUTSIDE BONE DENSITY SCREENING (12/21/2021) Pathologist [facility] BONE DENSITY SCREENING - EXTERNAL osteopenia us Historical Provider HEALTH MAINTENANCE Final Result from Last 3 Months or Most Recently Relevant to Health Maintenance Insurance [employer]PL[employer] REPL[employer] [place] [phone] [employer] Care Teams Erp Programmer Relationship Specialty Start Date End Date Renard Haynes MD [address] [place] [address] [email or web address] PCP - General Internal Medicine 03/25/23 Additional Source Comments The information contained in this document represents components of the legal health record. It is not the complete legal health record.[facility]
--- OUTSIDE RECORDS SUMMARY | 2025-10-08 10:19 | XMS_ITS | Patient Health Record ---
Author Organization [facility] [place] Address [address] [place] [address] Care Team Providers Care Tooling Manager Name Role Phone Zara DOYLE, Lenin Primary Care Provider Ariella Matute Unavailable [phone] Allergies Allergen (clinical drug ingredient) Drug/Non Drug Allergy documented on EMR Reaction Allergy Type Onset Date Status codeine Codeine hives Drug Allergy Active Reason For Referral No Information Medications Medication SIG (Take, Route, Frequency, Duration) Notes Start Date End Date Status Lisinopril 10 MG 1 tablet Orally Once a day; Duration: 30 day(s) Active ABC Plus Senior - as directed Orally Active Joint Health - as directed Orally Active Atorvastatin Calcium 40 MG 1 tablet Oral ly Once a day; Duration: 30 day(s) Active Ammonium Lactate 12 % 1 application [...] atherosclerosis of arteries of lower limbs (disorder) ([id number] ) Atherosclerosis of pilot station artery of both lower extremities, with unspecified presence of clinical manifestation (I70.203) Active confirmed Q7(A), Q8(2B), Q9(1B,2 C) Problem Essential hypertension (29582233) Essential hypertension (I10) Active confirmed Vital Signs Blood pressure diastolic 65 mm Hg 08/28/2025 Height 5ft 4in in 08/28/2025 Blood pressure systolic 130 mm Hg 08/28/2025 Weight 170 lbs 08/28/2025 BMI 29.18 kg/m2 08/28/2025 Procedures Procedure Date Ordered Date Performed Result Body Sit e 08710-VTDLINI NAIL, 6 OR MORE 02/06/2025 N/A 17211-TVNX SKIN LESIONS, 2 TO 4 02/06/2025 N/A 12260-RDBVSGY NAIL, 6 OR MORE 05/22/2025 N/A 10250-JVDM SKIN LESIONS, 2 TO 4 05/22/2025 N/A 46407-PKXVTHG NAIL, 6 OR MORE 08/28/2025 N/A 39499-MJET SKIN LESIONS, 2 TO 4 08/28/2025 N/A Encounters Encounter Location Date Provider Diagnosis [address] [address] 02/06/2025 Ariella Marques Atherosclerosis of pilot station artery of both lower extremities, with unspecified presence of clinical manifestation I70.203 ; Tinea unguium B35.1 ; Pain in right toe(s) M79.674 and Pain in left toe(s) M79.[address] [address] 05/22/2025 Ariella Marques Atherosclerosis of pilot station artery of both lower extremities, with unspecified presence of clinical manifestation I70.203 ; Tinea unguium B35.1 ; Pain in right toe(s) M79.674 and Pain in left toe(s) M79.[address] [address] 08/28/2025 Ariella Marques Atherosclerosis of pilot station artery of both lower extremities, with unspecified presence of clinical manifestation I70.203 ; Tinea unguium B35.1 ; Pain in right toe(s) M79.674 and Pain in left toe(s) M79.675 Assessments Encounter Date Diagnosis (ICD Code) Assessment Notes Treatment Notes Treatment Clinical Notes Section Notes 02/06/2025 Atherosclerosis of pilot station artery of both lower extremities, with unspecified presence of clinical manifestation (ICD-10 - I70.203) Q7(A), Q8(2B), Q9(1B,2C) 05/22/2025 Atherosclerosis of pilot station artery of both lower extremities, with unspecified presence of clinical manifestation (ICD-10 - I70.203) Q7(A), Q8(2B), Q9(1B,2C) 08/28/2025 Atherosclerosis of pilot station artery of both lower extremities, with unspecified presence of clinical manifestation (ICD-10 - I70.203) Q7(A), Q8(2B), Q9(1B,2C) 08/28/2025 Tinea unguium (ICD-10 - B35.1) 05/22/2025 Tinea unguium (ICD-10 - B35.1) 02/06/2025 Tinea unguium (ICD-10 - B35.1) 02/06/2025 Pain in right toe(s) (ICD-10 - M79.674) 05/22/2025 Pain in right toe(s) (ICD-10 - M79.674) 08/28/2025 Pain in right toe(s) (ICD-10 - M79.674) 08/28/2025 Pain in left toe(s) (ICD-10 - M79.675) 05/22/2025 Pain in left toe(s) (ICD-10 - M79.675) 02/06/2025 Pain in left toe(s) (ICD-10 - M79.675) Plan Of Treatment Pending Test Test Name Order Date 04373-CQOLJLF NAIL, 6 OR MORE 10/03/2024 90589-GGKWLKL NAIL, 6 OR MORE 02/06/2025 51473-BMQQKUE NAIL, 6 OR MORE 05/22/2025 84964-ABXHYBG NAIL, 6 OR MORE 08/28/2025 38543-SJKQ SKIN LESIONS, OVER 4 05/05/20 21 35185-XIXF SKIN LESIONS, OVER 4 08/11/20 21 84620-CYZR SKIN LESIONS, OVER 4 11/11/19 22 87147-VZZQ SKIN LESIONS, 2 TO 4 10/03/20 24 09530-CCCR SKIN LESIONS, 2 TO 4 05/22/20 25 34298-QUMU SKIN LESIONS, 2 TO 4 02/07/20 25 30561-FYMM SKIN LESIONS, 2 TO 4 08/28/20 25 78779-XEOW SKIN LESIONS, 2 TO 4 02/02/20 21 Next Appt Details Provider Name:Ariella Knutson stacy, 12/01/2025 10:00:00 AM, [address] [place], [address], Insurance Providers Payer Name Payer Address Payer Phone Subscriber Number Group Number Insured Name Patient Relationship to Insured Coverage Start Date Coverage End Date [employer] Preferred [address] [place] [address] [phone] [id number] Jennifer Tang Self - patient is the insured Medical (General) History Medical History History ICD Code High blood pressure Measles Mumps Chicken pox Surgical History Surgery Date(Month/Year) eye surgery 2 X (Eye Buckle & Lasik) hysterectomy Tooth extraction 01/13
--- OUTSIDE RECORDS SUMMARY | 2025-10-08 10:20 | XMS_ITS | Clinical Summary ---
Author Organization [facility] Address [address] [place] [address] Care Team Providers Care Roof Mechanic Name Role Phone Unavailable Primary Care Provider Unavailabl e Social History Tobacco Use Types Packs/Day Years Used Date Smoking Tobacco: Never Assessed Comments Unknown Sex and Gender Information Value Date Recorded Sex Assigned at Not on file Legal Sex Female 2:37 PM EDT Gender Identity Not on file Sexual Orientation Not on file Plan of Treatment Health Maintenance Due Date Last Done Comments Advance Care Planning 1940 DTaP/Tdap/Td Vaccines (1 - Tdap) 1957 Pneumococcal Vaccines 50+ (1 of 1 - PCV) 1988 Zoster (Shingles) Vaccine (1 of 2) 1988 RSV Vaccine 50 years and old er and Patients (1 - 1-dose 75+ series) 2013 COVID-19 Vaccine ( - 2024-2 6 season) 2025 Hepatitis B Vaccines Aged Out No long er eligible based on patient's age to complete this topic
--- NOTE | 2025-10-08 10:33 | MHC.OFFVIS ---
Vital Signs 10/08/25 10:37 Height 5 ft 6 in Weight 165 lb BMI 26.6 Intake Visit Reasons: OV- B/L Knee INJ Intake Note: right knee pain along the heredia Allergies codeine Allergy (Unknown, Verified 05/29/25 14:06) HIVES Codeine Phosphate Allergy (Unknown, Uncoded 05/29/25 14:06) hives HPI HPI OV- B/L Knee INJ: Details: 85-year-old female comes into the office today with concerns for right knee pain. She states the pain is just below the tibia into the heredia. She denies new injury. She does not feel she is at a point where she needs to have injections today. [facility] Medical History HTN (hypertension) Hyperlipidemia Social History Alcohol intake: never Patient Tobacco Use Status: Never used Tobacco Current occupational status: retired Current occupation: rt handed Review of Systems Const All systems reviewed & are unremarkable except as noted in HPI and below Physical Exam Extrem Other: Patient does have a chronic wound on the anterior portion of the knee just above the patella. No drainage. Healthy clean borders. She has full range of motion of the knee. Severe valgus deformity. Mild tenderness over the pes bursa of the right knee. No tenderness along the mediolateral joint line. Calf is supple and nontender neurovascularly intact. Assessment & Plan Assessment & Plan (1) Pes anserinus bursitis of right knee: Code(s): M70.51 - Other bursitis of knee, right knee Category: Medical Plan: I explained to the patient she just may have an acute flare-up of some bursitis. We will hold off on injections at this time. I did give her a refill of this Silvadene cream to help with her chronic wound. I also gave her some information on primary care physicians as she needs to establish herself with somebody in the area. She will see me back for injections as needed. Medications: Refilled silver sulfadiazine 1% (Silvadene) apply a 1.5 mm thickness 1 appl topical BID PRN 20 grams 3RF wound healing Coding Level of Care Code Est Pt Level 3 (30442) Add On Problem Visit Only Diagnoses Pes anserinus bursitis of right knee M70.51
[2025-10-08 10:37] VITALS: BMI 26.6
== END 2025-10-08 10:00 | disposition home or self-care (01) ==
LOC: HO.HOS 09:15
PROVIDERS: PCP Internal Medicine; Visit Provider Physician Assistant
DX: M70.51 Other bursitis of knee, right knee (principal)
CPT/HCPCS: 99213; G2211

== ENCOUNTER → 2025-10-08 09:14 | Outpatient (BNVA) | payer MEDICARE, SELFPAY | PROVIDERS: PCP Internal Medicine; Visit Provider Physician Assistant | DX: M70.51 Other bursitis of knee, right knee (principal) | CPT/HCPCS: 99212 ==